=== PATIENT | male | born 1990 | race African-American/Black ===

== ENCOUNTER 2018-09-22 10:17 | Inpatient (IN) | payer OTHER ==
[2018-09-22] MEDS ORDERED: ALBUTEROL SO4 2.5/IPRATROPIUM 0.5 INH SOL 3 ML VIAL.NEB. NEB ONE ×2 (10:18→10:22)
[2018-09-22] MEDS ORDERED: MAGNESIUM SULF 50% (8.12 MEQ/2 ML-1 GM VIAL) IVPB ONE (10:34)
--- NOTE | 2018-09-22 10:40 | PDOC ---
History of Present Illness - General Chief Complaint: Shortness of Breath Stated Complaint: SOB, WHEEZING Time Seen by Provider: 09/22/18 10:18 History Source: Patient, EMS Exam Limitations: No Limitations - History of Present Illness Initial Comments: 09/22/18 10:40 HPI 28 YOM with h/o HTN, DM2, MARTHA (?CPAP - noncompliant), morbid obesity and hypoventilation d/o presenting with worsening wheezing, SOB since yesterday he was last admitted about 2 months ago at [facility] for SOB, which pt states was from wheezing from asthma vs PE. called EMS this morning, received Combivents x2 and dexamethasone 10mg IM TURNER IN. no intubations, +prior ICU/hospitalization stays - most recent at [facility] 2 months prior. he denies history of asthma and unclear why he has recurrent SOB/wheezing, which he said his doctor attributed to obesity and his medical problems. Denies fever, chills, chest pain, palpitation, cough or congestion, dizziness, weakness, N, V, D, abdominal pain, bladder and bowel problems, leg swelling, No sick contacts or travel. No new changes in medications. No precipitating factors , allergens or recent respiratory illnesses. Allergies: None Past Medical History: as documented in EMR/HPI Social history: No tobacco, ETOH or drug use. Surgical history: none Meds: as documented in EMR - amlodipine, glipizide, metformin, ventolin. PMD: Phil [place] Review of systems Constitutional: no fevers or chills. HEENT: no headache or dizziness. No congestion. No visual/hearing disturbances. no sore throat or ear pain. CVS: no cp or syncope. Resp: +wheezing and +sob. No cough. Gastrointestinal: no abdominal pain, nausea or vomiting. Genitourinary: no urinary sx, hematuria. MUSCULOSKELETAL: No joint pain and swelling. No neck or back pain. SKIN: no redness or skin changes, no discharge, no rash. No wounds. Hematologic: no easy bruising/bleeding. +history of PE? NEUROLOGIC: No headache, dizziness, LOC or altered mental status. No weakness, numbness or tingling. Psych: no anxiety or depression Allergic/Immunologic: no allergies All other systems reviewed and negative, or as documented in HPI. Physical exam: General: Moderate distress 2/2 tachypnea and respiratory distress. Morbidly obese and audibly wheezing. able to speak full sentences. HEENT: NCAT, PERRL, EOMI, clear conjunctiva, anicteric, moist mucus membranes, clear oropharynx, no oral lesions.. Neck: neck supple, FROM, no JVD Resp: Bilateral diffuse wheezing in all lung damon, +tachypneic. CVS: +tachycardia, no murmurs, 2+ peripheral pulses throughout, no peripheral edema Abdomen: soft, morbidly obese, nontender. Back: nontender, normal inspection and ROM MSK: no edema, PACKER x4, ROM intact. No clubbing or cyanosis. normal bulk and tone. Neuro: alert, oriented appropriately, clear speech Skin: warm and well perfused, cap refill <2 sec, normal color Extrem: no calf edema or tenderness. 09/22/18 11:05 09/22/18 12:10 09/22/18 12:49 09/22/18 13:24 09/22/18 14:14 09/22/18 15:56 Past History - Past Medical History Allergies/Adverse Reactions: Allergies Allergy/AdvReac Type Severity Reaction Status Date / Time No Known Allergies Allergy Verified 09/22/18 10:18 Home Medications: Ambulatory Orders Albuterol Sulfate Inhaler - [Ventolin Hfa Inhaler -] 2 inh PO Q6H PRN 09/22/18 Amlodipine Besylate [Norvasc -] 10 mg PO DAILY 09/22/18 Glipizide/Metformin HCl [Glipizide-Metformin 5-500 mg] 2 tab PO BID 09/22/18 Asthma: Yes COPD: No Diabetes: Yes HTN: Yes - Suicide/Smoking/Psychosocial Hx Smoking History: Unknown if ever smoked *Physical Exam - Vital Signs Last Vital Signs Temp Pulse Resp BP Pulse Ox 113 H 24 H 163/86 90 L 09/22/18 10:17 09/22/18 10:17 09/22/18 10:17 09/22/18 10:17 Heart Score/ECG Review #1 ECG reviewed & interpreted by me at: 10:25 General ECG Interpretation: Sinus Rhythm, Normal Intervals Compared to previous ECG there are: Previous ECG unavail 09/22/18 11:09 EKG sinus tachycardia at 107 bpm, no interval abnormalities, narrow QRS, ST and T wave segments and morphology normal. Nonspecific T wave abnormalities - no priors. - ECG Intrepretation Rhythm: Regular Rhythm - ECG Impressions Tachycardia: Sinus ED Treatment Course - LABORATORY CBC & Chemistry Diagram: 09/22/18 10:30 09/22/18 10:30 - RADIOLOGY Radiology Studies Ordered: Category Date Time Status CHEST X-RAY PORTABLE* [RAD] Stat Radiology 09/22/18 10:19 Ordered Medical Decision Making - Critical Care Time Total Critical Care Time (minutes): 45 (acute respiratory failure) Critical Care Statement: The care of this patient involved high complexity decision making to prevent further life threatening deterioration of the patient 's condition and/or to evaluate & treat vital organ system(s) failure or risk of failure. - Medical Decision Making 09/22/18 11:08 See HPI for details Vital signs reviewed, no fever, but +tachycardia 113, tachypneic and borderline hypoxia 90% on RA - placed on nebs and supp O2. DDx SOB: ACS, PE, PTX, CHF, COPD exac, pulmonary edema, pleurisy, pneumonia, viral syndrome. effusion. anemia, electrolyte/metabolic derangements. MARTHA, Pickwickian, hypoventilatory syndrome. Prior notes reviewed, including admissions, discharges and consultations - obtaining records from [facility]. laboratory results and imaging reviewed, basic labs and lytes remarkable for leukocytosis of 17K, likely from steroids TURNER IN - s/p Dexamethasone. VBG normal, with no PH derangement, mild CO2 retention, related likely to habitus and poor inspiratory efforts and Pickwickian CXR_poor effort, mild cardiomegaly, interstitial markings, no distinct infiltrate or effusion Cardiac panel_neg trop, BNP EKG sinus tachycardia at 107 bpm, no interval abnormalities, narrow QRS, ST and T wave segments and morphology normal. Nonspecific T wave abnormalities - no priors. ED course - CTA to eval for PE, high to mod risk, +tachycardia and dyspnea with unclear etiology. prior history? s/p heparin vs lovenox inj per pt history. poor historian - awaiting results and workup from [facility] - sent over relevant information 09/22/18 12:00 - bipap initiated for persistent dyspnea, wheezing and WOB. feels much comfortable, VS improving, spO2 >95% on bipap. IV zosyn for possible pna with wbc ct and symptoms and preceding respiratory issues. 09/22/18 13:[address] scan due to weight and habitus limits. defer for now upon checking prior records, will repeat D dimer, wells score for PE at 1.5, so still in low risk category. no prior PE on further checking of records. Dimer neg, so unlikely PE, no CTA at this time. Records from [facility]. Admission 08/02/18 to 08/08/18 Had similar sx and admitted for asthma exac, wheezing and SOB workup. Labs from admission also reviewed - leukocytosis noted at the time, hyperglycemia Received similar treatment there - steroids, bipap, albuterol nebs, Mg; held off on terbutaline and epi, due to h/o HTN chronic Co2 retention 52 Abx cef/azithro, then to zosyn, ultimately doxycycline course for +Mycoplasma PNA. ICU cs, pulm cs Dimer neg, duplex unremarkable at that time. x 09/22/18 14:15 endorsed to [facility] Elias tele bed observation 09/22/18 14:58 09/22/18 14:58 09/22/18 15:55 09/22/18 15:57 *DC/Admit/Observation/Transfer Diagnosis at time of Disposition: Wheezing, Acute and chronic respiratory failure, Asthma exacerbation, MARTHA ( obstructive sleep apnea) - Discharge Dispostion Condition at time of disposition: Guarded Decision to Admit order: Yes Decision to Admit order Date/Time: 09/22/18 13:49 Decision to Admit Order Category Date Time Status Decision to Admit to Hospital Routine Admission 09/22/18 13:48 Ordered - Referrals - Patient Instructions - Post Discharge Activity
[2018-09-22] MEDS ORDERED: MAGNESIUM 1GM/D5W - 2 GM/200 ML IVPB IVPB ONE (10:48)
[2018-09-22 11:16] LABS: BASO % 1.2 % (0-2.0); EOS % 5.5 % (0-4.5); HEMATOCRIT 40.3 % (35.4-49); MCH 27.1 pg (25.7-33.7); MCHC 32.3 g/dl (32.0-35.9); MEAN CELL VOLUME 83.9 fl (80-96); MEAN PLT VOLUME 8.2 fl (7.5-11.1); MONO % 4.1 % (3.8-10.2); NEUT % 74.2 % (42.8-82.8); PLATELET COUNT 448 K/MM3 (134-434); RDW 13.3 % (11.9-15.9); WHITE BLOOD COUNT 17.8 K/mm3 (4.0-10.8)
[2018-09-22 11:17] LABS: ALBUMIN 3.4 g/dl (3.4-5.0); BILIRUBIN,TOTAL 0.6 mg/dl (0.2-1); CALCIUM 8.5 mg/dl (8.5-10); CREATININE 0.5 mg/dl (0.55-1.3); POTASSIUM 3.8 mmol/L (3.5-5.1); TOT PROT 7.7 g/dl (6.4-8.2)
[2018-09-22 11:24] LABS: VENOUS PC02 51.8 mmHg (41-51); VENOUS PH 7.37 (7.31-7.41); VENOUS PO2 57.8 mmHg (30-40)
[2018-09-22] MEDS ORDERED: ALBUTEROL SO4 0.083% IH SOL 2.5 MG/3 ML VIAL.NEB. NEB ONE (11:57)
[2018-09-22] MEDS ORDERED: ALBUTEROL SO4 0.083% IH SOL 2.5 MG/3 ML VIAL.NEB. NEB PRN (11:57)
[2018-09-22 12:13] LABS: ACTIVATED PTT 35.4 SECONDS (25.2-36.5)
[2018-09-22 12:18] LABS: INR 1.29 (0.82-1.09); PROTHROMBIN TIME (PATIENT) 14.4 SEC (10.2-13.0)
[2018-09-22] MEDS ORDERED: ENOXAPARIN NA (PORCINE) 120 MG/0.8 ML DISP.SYRIN SQ SCH (13:30)
[2018-09-22] MEDS ORDERED: SODIUM CHLORIDE 0.9% 500 ML INFUS.BAG IV ONE (13:48)
[2018-09-22] MEDS ORDERED: PIPERACILLIN/TAZOB 4.5 GM 4.5 GM in DEXTROSE 5%-WATER 100 ML IVPB ONE (13:48)
[2018-09-22] MEDS ORDERED: ENOXAPARIN NA (PORCINE) 120 MG/0.8 ML DISP.SYRIN SQ ONE (14:09)
[2018-09-22] MEDS ORDERED: PIPERACILLIN/TAZOBACTAM 4.5 GM VIAL IVPB ONE (14:09)
--- NOTE | 2018-09-22 15:20 | HP ---
CHIEF COMPLAINT: Shortness of breath, wheezing PCP: Dr. Grewal HISTORY OF PRESENT ILLNESS: 28 year-old male with a PMH significant for developmental delay, HTN, asthma, Type II NIDDM, morbid obesity, hypoventilation syndrome and MARTHA (not using home CPAP). Recently hospitalized at [facility] 08/02-08/08/18 for asthma exacerbation/mycoplasma pneumonia. Presents to the ED with wheezing and SOB x 1 day. 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; lives in [facility] with mother Smoking: no Alcohol: no Drugs: no Family History: Allergies Strawberries - reaction unknown HOME MEDICATIONS: Home Medications Medication Instructions Recorded Albuterol Sulfate Inhaler - 2 inh PO Q6H PRN 09/22/18 [Ventolin Hfa Inhaler -] Amlodipine Besylate [Norvasc -] 10 mg PO DAILY 09/22/18 Glipizide/Metformin HCl 2 tab PO BID 09/22/18 [Glipizide-Metformin 5-500 mg] REVIEW OF SYSTEMS CONSTITUTIONAL: Absent: fever, chills, diaphoresis, generalized weakness, malaise, loss of appetite, weight change HEENT: Absent: rhinorrhea, nasal congestion, throat pain, throat swelling, difficulty swallowing, mouth swelling, ear pain, eye pain, visual changes CARDIOVASCULAR: Absent: chest pain, syncope, palpitations, irregular heart rate, lightheadedness , peripheral edema RESPIRATORY: +SOB, wheezing Absent: cough, shortness of breath, dyspnea with exertion, orthopnea, wheezing, stridor, hemoptysis GASTROINTESTINAL: Absent: abdominal pain, abdominal distension, nausea, vomiting, diarrhea, constipation, melena, hematochezia GENITOURINARY: Absent: dysuria, frequency, urgency, hesitancy, hematuria, flank pain, genital pain MUSCULOSKELETAL: Absent: myalgia, arthralgia, joint swelling, back pain, neck pain SKIN: Absent: rash, itching, pallor HEMATOLOGIC/IMMUNOLOGIC: Absent: easy bleeding, easy bruising, lymphadenopathy, frequent infections ENDOCRINE: Absent: unexplained weight gain, unexplained weight loss, heat intolerance, cold intolerance NEUROLOGIC: Absent: headache, focal weakness or paresthesias, dizziness, unsteady gait, seizure, mental status changes, bladder or bowel incontinence PSYCHIATRIC: Absent: anxiety, depression, suicidal or homicidal ideation, hallucinations. PHYSICAL EXAMINATION Vital Signs - 24 hr 09/22/18 09/22/18 09/22/18 10:17 12:40 12:57 Temperature 97.6 F 97.7 F Pulse Rate 113 H Pulse Rate [ 105 H Left Apical] Respiratory 24 H 16 Rate Blood Pressure 163/86 Blood Pressure 134/91 [Right Arm] O2 Sat by Pulse 90 L 100 98 Oximetry (%) GENERAL: Awake, alert, and fully oriented, in no acute distress. HEAD: Normal with no signs of trauma. EYES: Pupils equal, round and reactive to light, extraocular movements intact, sclera anicteric, conjunctiva clear. No lid lag. EARS, NOSE, THROAT: Ears normal, nares patent, oropharynx clear without exudates. Moist mucous membranes. NECK: Normal range of motion, supple without lymphadenopathy, JVD, or masses. LUNGS: HEART: Regular rate and rhythm, normal S1 and S2 without murmur, rub or gallop. ABDOMEN: Soft, nontender, not distended, normoactive bowel sounds, no guarding, no rebound, no masses. No hepatomegaly or splenomegaly. MUSCULOSKELETAL: Normal range of motion at all joints. No bony deformities or tenderness. No CVA tenderness. UPPER EXTREMITIES: 2+ pulses, warm, well-perfused. No cyanosis. No clubbing. No peripheral edema. LOWER EXTREMITIES: 2+ pulses, warm, well-perfused. No calf tenderness. No peripheral edema. NEUROLOGICAL: Cranial nerves II-XII intact. Normal speech. Normal gait. PSYCHIATRIC: Cooperative. Good eye contact. Appropriate mood and affect. SKIN: Warm, dry, normal turgor, no rashes or lesions noted, normal capillary refill. Laboratory Results - last 24 hr 09/22/18 09/22/18 09/22/18 10:30 10:30 10:30 WBC 17.8 H RBC 4.80 Hgb 13.0 Hct 40.3 MCV 83.9 MCH 27.1 MCHC 32.3 RDW 13.3 Plt Count 448 H MPV 8.2 Absolute Neuts (auto) 13.2 Neutrophils % 74.2 Lymphocytes % 15.0 Monocytes % 4.1 Eosinophils % 5.5 H Basophils % 1.2 PT with INR INR PTT (Actin FS) D-Dimer VBG pH 7.37 POC VBG pCO2 51.8 H POC VBG pO2 57.8 H VBG HCO3 29.5 H VBG O2 Sat (Carissa) 87.8 H VBG Base Excess 3.4 H Sodium 135 L Potassium 3.8 Chloride 96 L Carbon Dioxide 24 Anion Gap 15 BUN 11 Creatinine 0.5 L Est GFR (CKD-EPI)AfAm 173.34 Est GFR (CKD-EPI)NonAf 149.56 Random Glucose 229 H Calcium 8.5 Total Bilirubin 0.6 AST 38 H ALT 34 Alkaline Phosphatase 106 Troponin I B-Natriuretic Peptide Total Protein 7.7 Albumin 3.4 09/22/18 09/22/18 09/22/18 10:30 10:30 11:10 WBC RBC Hgb Hct MCV MCH MCHC RDW Plt Count MPV Absolute Neuts (auto) Neutrophils % Lymphocytes % Monocytes % Eosinophils % Basophils % PT with INR INR PTT (Actin FS) D-Dimer 424 VBG pH POC VBG pCO2 POC VBG pO2 VBG HCO3 VBG O2 Sat (Carissa) VBG Base Excess Sodium Potassium Chloride Carbon Dioxide Anion Gap BUN Creatinine Est GFR (CKD-EPI)AfAm Est GFR (CKD-EPI)NonAf Random Glucose Calcium Total Bilirubin AST ALT Alkaline Phosphatase Troponin I < 0.03 B-Natriuretic Peptide 27.2 Total Protein Albumin 09/22/18 11:48 WBC RBC Hgb Hct MCV MCH MCHC RDW Plt Count MPV Absolute Neuts (auto) Neutrophils % Lymphocytes % Monocytes % Eosinophils % Basophils % PT with INR 14.4 H INR 1.29 H PTT (Actin FS) 35.4 D-Dimer VBG pH POC VBG pCO2 POC VBG pO2 VBG HCO3 VBG O2 Sat (Carissa) VBG Base Excess Sodium Potassium Chloride Carbon Dioxide Anion Gap BUN Creatinine Est GFR (CKD-EPI)AfAm Est GFR (CKD-EPI)NonAf Random Glucose Calcium Total Bilirubin AST ALT Alkaline Phosphatase Troponin I B-Natriuretic Peptide Total Protein Albumin ASSESSMENT/PLAN 28 year-old male with a PMH significant for HTN, Type II NIDDM, morbid obesity, hypoventilation syndrome, MARTHA on home CPAP. Hospitalized in July 2018 for mycoplasma pneumonia. Placed on observation for hypoxic respiratory failure likely secondary to asthma exacerbation. Hypoxic respiratory failure likely secondary to asthma exacerbation Chronic hypercapneic respiratory failure Obesity hypoventilation syndrome MARTHA --sastting 90% on room air --d-dimer negative --CXR no acute findings, CT not possible due to weight limit --afebrile, elevated WBC but possibly due to dexamethasone administered by EMS; will start empiric ceftriaxone and azithro --BiPAP at night and PRN --ABG pending Hypertension --BP stable --continue amlodipine Type II NIDDM --review of [facility] records: A1C 14; was on Lantus 42U qhs and Humalog 18U with meals --Novolog sliding scale coverage for now while NPO FEN Fluids: PO intake adequate Electrolytes: replete as indicated Nutrition: low sodium, diabetic DVT prophylaxis: subq heparin Physical therapy Dispo: continues to require inpatient care. Full code. Visit type - Emergency Visit Emergency Visit: Yes ED Registration Date: 09/22/18 Care time: The patient presented to the Emergency Department on the above date and was hospitalized for further evaluation of their emergent condition. - New Patient This patient is new to me today: Yes Date on this admission: 09/22/18 - Critical Care Critical Care patient: No
[2018-09-22] MEDS: ALBUTEROL SO4 2.5/IPRATROPIUM 0.5 INH SOL 3 ML VIAL.NEB. NEB SCH ×2 (17:40→19:53)
[2018-09-22] MEDS: INSULIN (NOVOLOG) ASPART 100 UNITS/ML 10ML VIAL SQ SCH ×2 (17:40→22:46)
[2018-09-22] MEDS ORDERED: HEPARIN NA (PORCINE) 5,000 UNITS/ML 1ML VIAL SQ SCH (18:00)
[2018-09-22 18:26] LABS: ARTERIAL BLD GAS O2 SATURATION 91.6 % (95-98); ARTERIAL BLOOD GAS PCO2 44.7 mmHg (35-45); ARTERIAL BLOOD GAS PO2 62.3 mmHg (80-105); ARTERIAL BLOOD GAS pH 7.41 (7.35-7.45)
[2018-09-22 18:30] LABS: ALLENS TEST POSITIVE
[2018-09-22] MEDS ORDERED: CEFTRIAXONE 1 GM in DEXTROSE 5%-WATER - 50 ML IVPB SCH (18:30)
[2018-09-22] MEDS ORDERED: AZITHROMYCIN IVPB 500 MG/250 ML BAG IVPB SCH (18:30)
--- NOTE | 2018-09-22 18:40 | PN ---
Progress Note (short form) - Note Progress Note: PULMONARY CONSULTATION DICTATED 09/22/18 IMP ACUTE HYPOXEMIC RESPIRATORY FAILURE ASTHMA EXACERBATION OBESITY-HYPOVENTILATION SYNDROME MORBID OBESITY DM HTN H/O MYCOPLASMA PNEUMONIA PLAN IV STEROIDS INHALED BRONCHODILATORS O2 TO MAINTAIN SAT 90% OR GREATER BIPAP AT NIGHT AND PRN ABX MONITOR PEAK FLOW GLYCEMIC CONTROL DR GUERRERO Problem List - Problems (1) Acute on chronic respiratory failure with hypoxemia Code(s): J96.21 - ACUTE AND CHRONIC RESPIRATORY FAILURE WITH HYPOXIA (2) Acute hypoxemic respiratory failure Code(s): J96.01 - ACUTE RESPIRATORY FAILURE WITH HYPOXIA (3) Acute and chronic respiratory failure Code(s): J96.20 - ACUTE AND CHR RESP FAILURE, UNSP W HYPOXIA OR HYPERCAPNIA (4) Asthma exacerbation Code(s): J45.901 - UNSPECIFIED ASTHMA WITH (ACUTE) EXACERBATION (5) MARTHA (obstructive sleep apnea) Code(s): G47.33 - OBSTRUCTIVE SLEEP APNEA (ADULT) (PEDIATRIC) (6) Wheezing Code(s): R06.2 - WHEEZING
[2018-09-22] MEDS ORDERED: CEFTRIAXONE 1 G/50 ML PREMIX 50 ML IVPB SCH (18:45)
--- NOTE | 2018-09-22 19:12 | CONS ---
DATE OF CONSULTATION: 09/22/2018 PULMONARY CONSULTATION REFERRING PHYSICIAN: Paulina Salgado N.P. HISTORY OF PRESENT ILLNESS: The patient is a 28-year-old black male with a past medical history of obesity hypoventilation syndrome, obstructive sleep apnea, asthma, diabetes, morbid obesity, hypertension, admitted to [facility] with 1-day history of increasing shortness of breath, cough, and bronchospasm. Patient apparently was hospitalized approximately 2 months ago at [place] secondary to asthma exacerbation. At the time, he was treated and noted to have mycoplasma positive antibodies, placed on antibiotic therapy, IV steroids, inhaled bronchodilators, and BiPAP. Patient responded well and discharged home in stable condition, and was apparently doing well until yesterday when he started developing increasing shortness of breath, cough and wheezing. EMS was called earlier today and was prescribed 2 Combivents and Decadron 10 mg IM. The patient was started on O2 as well as BiPAP with some clinical improvement. There is no previous history of intubation, but he apparently has had ICU hospitalizations in the past, likely placed on noninvasive positive pressure ventilation. PAST MEDICAL HISTORY: Again includes obstructive sleep apnea, asthma, hypertension, type 2 diabetes, obesity hypoventilation syndrome. REVIEW OF SYSTEMS: At the current time, positive cough, positive wheezing, positive shortness of breath. No chest pain, no palpitations. CURRENT MEDICATIONS: Include Solu-Medrol 40 q.6, Zithromax, heparin, albuterol, DuoNeb, ceftriaxone, Norvasc, and NovoLog. PHYSICAL EXAMINATION: GENERAL: The patient is a morbidly obese male, well-developed, well-nourished, awake, alert, sitting out of bed to chair, mildly dyspneic, but in no acute distress. VITAL SIGNS: O2 saturation is 90% on 4 L. Respiratory rate is 18. He is afebrile. Heart rate is 102. HEENT: Normocephalic, atraumatic. NECK: Supple. HEART: Regular S1, S2. CHEST: Diffuse bilateral wheezes. ABDOMEN: Soft, bowel sounds positive. EXTREMITIES: No cyanosis, edema. LABORATORY: WBC 17.8, hemoglobin 13, hematocrit 40.3, platelet count of 248, 000. D-dimer is normal at 424. Blood gas: initial venous blood gas 7.37, pCO2 of 51 and pO2 of 57, bicarbonate of 29, saturation of 87. Recent blood gas on unknown quantity of oxygen is 7.41, pCO2 of 44, pO2 of 62, bicarbonate of 27, saturation of 91.6. Chemistries: BUN 11, creatinine 0.5. Chest x-ray reveals AP film, large cardiac silhouette but no acute infiltrates or effusions. IMPRESSION: 1. Acute hypoxemic respiratory failure secondary to acute asthma exacerbation. 2. Obesity hypoventilation syndrome. 3. Morbid obesity. 4. Diabetes. 5. Hypertension. 6. History of mycoplasma pneumonia. PLAN: IV steroids, inhaled bronchodilators, supplemental O2 to maintain saturation of 90% or greater, BiPAP at night as well as p.r.n. for increasing respiratory distress, antibiotics, monitor peak flow, glycemic control. WILLIAM GUERRERO M.D. [id number] MTDD
[2018-09-22] MEDS: methylPREDNISolone NA SUCC 40 MG/1 ML VIAL IVPUSH SCH ×2 (19:53→22:00)
[2018-09-22] MEDS ORDERED: methylPREDNISolone NA SUCC 40 MG/1 ML VIAL IVPUSH SCH ×2 (20:00→21:00)
--- NOTE | 2018-09-22 22:11 | HOSP ---
Subjective - Review of Symptoms Events since last encounter: [facility] related to asthma exacerbation. On arrival O2 sat 100% on 4L and he remains hemodynamically stable. Physical Examination Vital Signs: Vital Signs Temperature 98.2 F 09/22/18 20:25 Pulse Rate 106 H 09/22/18 20:25 Respiratory Rate 26 H 09/22/18 20:25 Blood Pressure 153/76 09/22/18 20:25 O2 Sat by Pulse Oximetry (%) 93 L 09/22/18 20:31 Labs: CBC, BMP 09/22/18 10:30 09/22/18 10:30
[2018-09-23] MEDS ORDERED: ALBUTEROL SO4 0.083% IH SOL 2.5 MG/3 ML VIAL.NEB. NEB PRN (01:13)
[2018-09-23] MEDS: methylPREDNISolone NA SUCC 40 MG/1 ML VIAL IVPUSH SCH ×3 (03:00→17:34)
[2018-09-23] MEDS ORDERED: HEPARIN NA (PORCINE) 5,000 UNITS/ML 1ML VIAL SQ SCH (06:00)
[2018-09-23] MEDS: HEPARIN NA (PORCINE) 5,000 UNITS/ML 1ML VIAL SQ SCH ×3 (06:10→21:57)
[2018-09-23] MEDS: INSULIN SLIDING SCALE (NOVOLOG) 1 VIAL SQ SCH ×4 (06:12→21:58)
[2018-09-23 07:11] LABS: BASO % 0.3 % (0-2.0); HEMATOCRIT 40.3 % (35.4-49); HEMOGLOBIN 12.9 GM/dL (11.7-16.9); LYMPH % 8.3 % (8-40); MCH 26.6 pg (25.7-33.7); MEAN CELL VOLUME 83.2 fl (80-96); MEAN PLT VOLUME 7.8 fl (7.5-11.1); MONO % 1.6 % (3.8-10.2); NEUT % 89.8 % (42.8-82.8); PLATELET COUNT 469 K/MM3 (134-434); RBC 4.85 M/mm3 (4.00-5.60); RDW 13.9 % (11.9-15.9); WHITE BLOOD COUNT 17.5 K/mm3 (4.0-10.0)
[2018-09-23 07:41] LABS: ALBUMIN 3.3 g/dl (3.4-5.0); BILIRUBIN,TOTAL 0.8 mg/dL (0.2-1); CALCIUM 8.3 mg/dL (8.5-10.1); CREATININE 0.7 mg/dL (0.55-1.3); MAGNESIUM 2.1 mg/dL (1.8-2.4); POTASSIUM 4.1 mmol/L (3.5-5.1); TOT PROT 8.1 g/dl (6.4-8.2)
[2018-09-23] MEDS: ALBUTEROL SO4 2.5/IPRATROPIUM 0.5 INH SOL 3 ML VIAL.NEB. NEB SCH ×4 (07:45→19:32)
[2018-09-23] MEDS ORDERED: cefTRIAXone SODIUM 1 GM VIAL ONE (09:06)
[2018-09-23] MEDS ORDERED: DEXTROSE 5%-WATER - 50 ML IVPB ONE (09:07)
[2018-09-23] MEDS: amLODIPine BESYLATE 10 MG TABLET (FP) PO SCH (09:35)
[2018-09-23] MEDS: CEFTRIAXONE 1 GM in DEXTROSE 5%-WATER - 50 ML IVPB SCH (09:40)
--- NOTE | 2018-09-23 09:40 | PN ---
Physical Exam: SUBJECTIVE: Patient seen and examined in his room. sitting in chair. on 4 liters of nasal cannula. OBJECTIVE: add protonix Vital Signs Period Temp Pulse Resp BP Sys/Basilio Pulse Ox Last 24 Hr 97.6 F-98.7 F 95-113 16-26 132-163/65-98 90-100 GENERAL: The patient is awake, alert, in no acute distress. HEAD: Normal with no signs of trauma. EYES: PERRL, extraocular movements intact, sclera anicteric, conjunctiva clear. No ptosis. ENT: Ears normal, nares patent, oropharynx clear without exudates, moist mucous membranes. NECK: Trachea midline, full range of motion, supple. LUNGS: anterior and posterior expiratory wheezing. on 4 liters supplemental oxygen HEART: Regular rate and rhythm ABDOMEN: Soft, nontender, nondistended, normoactive bowel sounds, no guarding EXTREMITIES: no edema. NEUROLOGICAL: Normal speech, gait not observed. PSYCH: Normal mood, normal affect. SKIN: Warm, dry, normal turgor, no rashes or lesions noted Laboratory Results - last 24 hr 09/22/18 09/22/18 09/22/18 10:30 10:30 10:30 WBC 17.8 H RBC 4.80 Hgb 13.0 Hct 40.3 MCV 83.9 MCH 27.1 MCHC 32.3 RDW 13.3 Plt Count 448 H MPV 8.2 Absolute Neuts (auto) 13.2 Neutrophils % 74.2 Lymphocytes % 15.0 Monocytes % 4.1 Eosinophils % 5.5 H Basophils % 1.2 Nucleated RBC % PT with INR INR PTT (Actin FS) D-Dimer Puncture Site ABG pH ABG pCO2 at Pt Temp ABG pO2 at Pt Temp ABG HCO3 ABG O2 Sat (Measured) ABG O2 Content ABG Base Excess Alon Test VBG pH 7.37 POC VBG pCO2 51.8 H POC VBG pO2 57.8 H VBG HCO3 29.5 H VBG O2 Sat (Carissa) 87.8 H VBG Base Excess 3.4 H Oxygen Flow Rate Sodium 135 L Potassium 3.8 Chloride 96 L Carbon Dioxide 24 Anion Gap 15 BUN 11 Creatinine 0.5 L Est GFR (CKD-EPI)AfAm 173.34 Est GFR (CKD-EPI)NonAf 149.56 POC Glucometer Random Glucose 229 H Hemoglobin A1c % Calcium 8.5 Magnesium Total Bilirubin 0.6 AST 38 H ALT 34 Alkaline Phosphatase 106 Troponin I B-Natriuretic Peptide Total Protein 7.7 Albumin 3.4 Urine Color Urine Appearance Urine pH Urine Protein Urine Glucose (UA) Urine Ketones Urine Blood Urine Nitrite Urine Bilirubin Urine Urobilinogen Ur Leukocyte Esterase Urine RBC Urine WBC Urine Bacteria Influenza A (Rapid) Influenza B (Rapid) 09/22/18 09/22/18 09/22/18 10:30 10:30 11:10 WBC RBC Hgb Hct MCV MCH MCHC RDW Plt Count MPV Absolute Neuts (auto) Neutrophils % Lymphocytes % Monocytes % Eosinophils % Basophils % Nucleated RBC % PT with INR INR PTT (Actin FS) D-Dimer 424 Puncture Site ABG pH ABG pCO2 at Pt Temp ABG pO2 at Pt Temp ABG HCO3 ABG O2 Sat (Measured) ABG O2 Content ABG Base Excess Alon Test VBG pH POC VBG pCO2 POC VBG pO2 VBG HCO3 VBG O2 Sat (Carissa) VBG Base Excess Oxygen Flow Rate Sodium Potassium Chloride Carbon Dioxide Anion Gap BUN Creatinine Est GFR (CKD-EPI)AfAm Est GFR (CKD-EPI)NonAf POC Glucometer Random Glucose Hemoglobin A1c % Calcium Magnesium Total Bilirubin AST ALT Alkaline Phosphatase Troponin I < 0.03 B-Natriuretic Peptide 27.2 Total Protein Albumin Urine Color Urine Appearance Urine pH Urine Protein Urine Glucose (UA) Urine Ketones Urine Blood Urine Nitrite Urine Bilirubin Urine Urobilinogen Ur Leukocyte Esterase Urine RBC Urine WBC Urine Bacteria Influenza A (Rapid) Influenza B (Rapid) 09/22/18 09/22/18 09/22/18 11:48 17:25 17:32 WBC RBC Hgb Hct MCV MCH MCHC RDW Plt Count MPV Absolute Neuts (auto) Neutrophils % Lymphocytes % Monocytes % Eosinophils % Basophils % Nucleated RBC % PT with INR 14.4 H INR 1.29 H PTT (Actin FS) 35.4 D-Dimer Puncture Site No Result Required. ABG pH 7.41 ABG pCO2 at Pt Temp 44.7 ABG pO2 at Pt Temp 62.3 L ABG HCO3 27.7 H ABG O2 Sat (Measured) 91.6 L ABG O2 Content 21.1 ABG Base Excess 3.0 H Alon Test Positive VBG pH POC VBG pCO2 POC VBG pO2 VBG HCO3 VBG O2 Sat (Carissa) VBG Base Excess Oxygen Flow Rate No Result Required. Sodium Potassium Chloride Carbon Dioxide Anion Gap BUN Creatinine Est GFR (CKD-EPI)AfAm Est GFR (CKD-EPI)NonAf POC Glucometer 235 Random Glucose Hemoglobin A1c % Calcium Magnesium Total Bilirubin AST ALT Alkaline Phosphatase Troponin I B-Natriuretic Peptide Total Protein Albumin Urine Color Urine Appearance Urine pH Urine Protein Urine Glucose (UA) Urine Ketones Urine Blood Urine Nitrite Urine Bilirubin Urine Urobilinogen Ur Leukocyte Esterase Urine RBC Urine WBC Urine Bacteria Influenza A (Rapid) Influenza B (Rapid) 09/22/18 09/22/18 09/22/18 18:10 20:00 22:41 WBC RBC Hgb Hct MCV MCH MCHC RDW Plt Count MPV Absolute Neuts (auto) Neutrophils % Lymphocytes % Monocytes % Eosinophils % Basophils % Nucleated RBC % PT with INR INR PTT (Actin FS) D-Dimer Puncture Site ABG pH ABG pCO2 at Pt Temp ABG pO2 at Pt Temp ABG HCO3 ABG O2 Sat (Measured) ABG O2 Content ABG Base Excess Alon Test VBG pH POC VBG pCO2 POC VBG pO2 VBG HCO3 VBG O2 Sat (Carissa) VBG Base Excess Oxygen Flow Rate Sodium Potassium Chloride Carbon Dioxide Anion Gap BUN Creatinine Est GFR (CKD-EPI)AfAm Est GFR (CKD-EPI)NonAf POC Glucometer 211 Random Glucose Hemoglobin A1c % Calcium Magnesium Total Bilirubin AST ALT Alkaline Phosphatase Troponin I B-Natriuretic Peptide Total Protein Albumin Urine Color Yellow Urine Appearance Slightly Urine pH 5.5 Urine Protein 2+ H Urine Glucose (UA) Negative Urine Ketones Negative Urine Blood Trace-lysed Urine Nitrite Negative Urine Bilirubin Negative Urine Urobilinogen 0.2 Ur Leukocyte Esterase 1+ Urine RBC 2-5 Urine WBC 2-5 Urine Bacteria Few Influenza A (Rapid) Negative Influenza B (Rapid) Negative 09/23/18 09/23/18 09/23/18 06:00 06:00 06:00 WBC 17.5 H RBC 4.85 Hgb 12.9 Hct 40.3 MCV 83.2 MCH 26.6 MCHC 32.0 RDW 13.9 Plt Count 469 H MPV 7.8 Absolute Neuts (auto) 15.7 H Neutrophils % 89.8 H Lymphocytes % 8.3 Monocytes % 1.6 L Eosinophils % 0.0 Basophils % 0.3 Nucleated RBC % 0 PT with INR INR PTT (Actin FS) D-Dimer Puncture Site ABG pH ABG pCO2 at Pt Temp ABG pO2 at Pt Temp ABG HCO3 ABG O2 Sat (Measured) ABG O2 Content ABG Base Excess Alon Test VBG pH POC VBG pCO2 POC VBG pO2 VBG HCO3 VBG O2 Sat (Carissa) VBG Base Excess Oxygen Flow Rate Sodium 137 Potassium 4.1 Chloride 101 Carbon Dioxide 28 Anion Gap 8 BUN 15 Creatinine 0.7 Est GFR (CKD-EPI)AfAm 150.95 Est GFR (CKD-EPI)NonAf 130.24 POC Glucometer Random Glucose 233 H Hemoglobin A1c % 10.3 H Calcium 8.3 L Magnesium 2.1 Total Bilirubin 0.8 AST 31 ALT 40 Alkaline Phosphatase 120 H Troponin I B-Natriuretic Peptide Total Protein 8.1 Albumin 3.3 L Urine Color Urine Appearance Urine pH Urine Protein Urine Glucose (UA) Urine Ketones Urine Blood Urine Nitrite Urine Bilirubin Urine Urobilinogen Ur Leukocyte Esterase Urine RBC Urine WBC Urine Bacteria Influenza A (Rapid) Influenza B (Rapid) 09/23/18 06:06 WBC RBC Hgb Hct MCV MCH MCHC RDW Plt Count MPV Absolute Neuts (auto) Neutrophils % Lymphocytes % Monocytes % Eosinophils % Basophils % Nucleated RBC % PT with INR INR PTT (Actin FS) D-Dimer Puncture Site ABG pH ABG pCO2 at Pt Temp ABG pO2 at Pt Temp ABG HCO3 ABG O2 Sat (Measured) ABG O2 Content ABG Base Excess Alon Test VBG pH POC VBG pCO2 POC VBG pO2 VBG HCO3 VBG O2 Sat (Carissa) VBG Base Excess Oxygen Flow Rate Sodium Potassium Chloride Carbon Dioxide Anion Gap BUN Creatinine Est GFR (CKD-EPI)AfAm Est GFR (CKD-EPI)NonAf POC Glucometer 203 Random Glucose Hemoglobin A1c % Calcium Magnesium Total Bilirubin AST ALT Alkaline Phosphatase Troponin I B-Natriuretic Peptide Total Protein Albumin Urine Color Urine Appearance Urine pH Urine Protein Urine Glucose (UA) Urine Ketones Urine Blood Urine Nitrite Urine Bilirubin Urine Urobilinogen Ur Leukocyte Esterase Urine RBC Urine WBC Urine Bacteria Influenza A (Rapid) Influenza B (Rapid) Active Medications Generic Name Dose Route Start Last Admin Trade Name Freq PRN Reason Stop Dose Admin Albuterol Sulfate 1 amp 09/23/18 01:13 Ventolin 0.083% Nebulizer Soln - NEB Q4H PRN SHORT OF BREATH/WHEEZING Albuterol/Ipratropium 1 amp 09/23/18 08:00 09/23/18 07:45 Duoneb - NEB 1 amp RQID JOSSY Administration Amlodipine Besylate 10 mg 09/23/18 10:00 Norvasc - PO DAILY JOSSY Heparin Sodium (Porcine) 5,000 unit 09/23/18 06:00 09/23/18 06:10 Heparin - SQ 5,000 unit TID JOSSY Administration Azithromycin 500 mg in 250 mls @ 250 mls/hr 09/23/18 10:00 Zithromax 500mg Ivpb (Pre-Docked) IVPB DAILY JOSSY Ceftriaxone Sodium 1 gm/ 50 mls @ 100 mls/hr 09/23/18 10:00 Dextrose IVPB DAILY JOSSY Protocol Insulin Aspart 1 vial 09/23/18 07:00 09/23/18 06:12 Novolog Vial Sliding Scale - SQ 4 unit ACHS JOSSY Administration Protocol Methylprednisolone Sodium Succinate 60 mg 09/22/18 20:00 09/23/18 03:00 Solu-Medrol - IVPUSH 60 mg Q6H-IV JOSSY Administration ASSESSMENT/PLAN: Patient is a 28 year old male with a past medical history of HTN, Type II NIDDM , morbid obesity, hypoventilation syndrome, MARTHA on home CPAP. Hospitalized in July 2018 for mycoplasma pneumonia. Admitted for hypoxic respiratory failure likely secondary to asthma exacerbation. Pulm: Hypoxic respiratory failure likely secondary to acute asthma exacerbation negative d dimer. still requires high dose supplement oxygen (4 liter nc) to retain normal oxygen saturations. titrate off oxygen as tolerated. has bipap at night. on solumedrol 60mg iv q6. on azithromycin and ceftriaxone.pulm following Chest xray 09/22/18 shows cardiomegaly. Card: Hypertension. controlled on norvasc 10mg daily. Endocrine: Type II NIDDM Elevated a1c. on SS. will add basal insulin for better control. goal is to have pre-meal insulin <180. diabetic diet. Heme: Leukocytosis. afebrile. blood and urine cultures pending. fen tolerating po monitor electrolytes diabetic diet prophy heparin protonix full code Visit type - Emergency Visit Emergency Visit: Yes ED Registration Date: 09/23/18 Care time: The patient presented to the Emergency Department on the above date and was hospitalized for further evaluation of their emergent condition. - New Patient This patient is new to me today: Yes Date on this admission: 09/23/18 - Critical Care Critical Care patient: No - Discharge Referral Referred to [facility] Med P.C.: No
[2018-09-23] MEDS ORDERED: amLODIPine BESYLATE 10 MG TABLET (FP) PO SCH (10:00)
[2018-09-23] MEDS: AZITHROMYCIN IVPB 500 MG/250 ML BAG IVPB SCH (10:23)
[2018-09-23] MEDS: PANTOPRAZOLE 40 MG TABLET (FP) PO SCH (10:23)
--- NOTE | 2018-09-23 11:42 | PN ---
Progress Note, Physician History of Present Illness: pulmonary alert,feeling better,less dyspneic,oob-chair - Current Medication List Current Medications: Active Medications Albuterol Sulfate (Ventolin 0.083% Nebulizer Soln -) 1 amp NEB Q4H PRN PRN Reason: SHORT OF BREATH/WHEEZING Albuterol/Ipratropium (Duoneb -) 1 amp NEB RQID [facility] Last Admin: 09/23/18 11:34 Dose: 1 amp Amlodipine Besylate (Norvasc -) 10 mg PO DAILY [facility] Last Admin: 09/23/18 09:35 Dose: 10 mg Heparin Sodium (Porcine) (Heparin -) 5,000 unit SQ TID [facility] Last Admin: 09/23/18 06:10 Dose: 5,000 unit Azithromycin (Zithromax 500mg Ivpb (Pre-Docked)) 500 mg in 250 mls @ 250 mls/ hr IVPB DAILY [facility] Last Admin: 09/23/18 10:23 Dose: 250 mls/hr Ceftriaxone Sodium 1 gm/ (Dextrose) 50 mls @ 100 mls/hr IVPB DAILY [facility]; Protocol Last Admin: 09/23/18 09:40 Dose: 100 mls/hr Insulin Aspart (Novolog Vial Sliding Scale -) 1 vial SQ ACHS [facility]; Protocol Last Admin: 09/23/18 06:12 Dose: 4 unit Insulin Detemir (Levemir Vial) 15 units SQ HS [facility] Methylprednisolone Sodium Succinate (Solu-Medrol -) 60 mg IVPUSH Q6H-IV [facility] Last Admin: 09/23/18 09:35 Dose: 60 mg Pantoprazole Sodium (Protonix -) 40 mg PO DAILY [facility] Last Admin: 09/23/18 10:23 Dose: 40 mg - Objective Vital Signs: Vital Signs Temperature 98.1 F 09/23/18 08:53 Pulse Rate 102 H 09/23/18 08:53 Respiratory Rate 18 09/23/18 08:53 Blood Pressure 156/87 09/23/18 08:53 O2 Sat by Pulse Oximetry (%) 93 L 09/23/18 08:34 Constitutional: Yes: No Distress, Calm, Obese Eyes: Yes: WNL HENT: Yes: WNL Neck: Yes: WNL Cardiovascular: Yes: Regular Rate and Rhythm, S1, S2 Respiratory: Yes: Wheezes (less wheezes korina) Gastrointestinal: Yes: Normal Bowel Sounds, Soft Extremities: Yes: WNL Edema: Yes Labs: CBC, BMP 09/23/18 06:00 09/23/18 06:00 INR, PTT INR 1.29 (0.82-1.09) H 09/22/18 11:48 Problem List - Problems (1) Acute on chronic respiratory failure with hypoxemia Code(s): J96.21 - ACUTE AND CHRONIC RESPIRATORY FAILURE WITH HYPOXIA (2) Acute hypoxemic respiratory failure Code(s): J96.01 - ACUTE RESPIRATORY FAILURE WITH HYPOXIA (3) Acute and chronic respiratory failure Code(s): J96.20 - ACUTE AND CHR RESP FAILURE, UNSP W HYPOXIA OR HYPERCAPNIA (4) Asthma exacerbation Code(s): J45.901 - UNSPECIFIED ASTHMA WITH (ACUTE) EXACERBATION (5) MARHTA (obstructive sleep apnea) Code(s): G47.33 - OBSTRUCTIVE SLEEP APNEA (ADULT) (PEDIATRIC) (6) Wheezing Code(s): R06.2 - WHEEZING Assessment/Plan IMP ACUTE HYPOXEMIC RESPIRATORY FAILURE ASTHMA EXACERBATION OBESITY-HYPOVENTILATION SYNDROME MORBID OBESITY DM HTN H/O MYCOPLASMA PNEUMONIA PLAN IV STEROIDS INHALED BRONCHODILATORS O2 TO MAINTAIN SAT 90% OR GREATER BIPAP AT NIGHT AND PRN ABX MONITOR PEAK FLOW GLYCEMIC CONTROL DR GUERRERO Problem List - Problems (1) Acute on chronic respiratory failure with hypoxemia Code(s): J96.21 - ACUTE AND CHRONIC RESPIRATORY FAILURE WITH HYPOXIA (2) Acute hypoxemic respiratory failure Code(s): J96.01 - ACUTE RESPIRATORY FAILURE WITH HYPOXIA (3) Acute and chronic respiratory failure Code(s): J96.20 - ACUTE AND CHR RESP FAILURE, UNSP W HYPOXIA OR HYPERCAPNIA (4) Asthma exacerbation Code(s): J45.901 - UNSPECIFIED ASTHMA WITH (ACUTE) EXACERBATION (5) MARTHA (obstructive sleep apnea) Code(s): G47.33 - OBSTRUCTIVE SLEEP APNEA (ADULT) (PEDIATRIC) (6) Wheezing Code(s): R06.2 - WHEEZING
--- NOTE | 2018-09-23 12:13 | EKG ---
Test Reason : Blood Pressure : / mmHG Vent. Rate : 107 BPM Atrial Rate : 107 BPM P-R Int : 148 ms QRS Dur : 076 ms QT Int : 350 ms P-R-T Axes : 064 080 059 degrees QTc Int : 467 ms SINUS TACHYCARDIA SEPTAL INFARCT , AGE UNDETERMINED ABNORMAL ECG NO PREVIOUS ECGS AVAILABLE Confirmed by MD Spencer, Dank ([id number]) on 09/23/2018 12:13:21 PM Referred By: ALDA GARVIN Confirmed By:Dank Palmer MD
[2018-09-23] MEDS: INSULIN (LEVEMIR) 100 UNITS/ML UNITS SQ SCH (21:57)
[2018-09-24] MEDS: methylPREDNISolone NA SUCC 40 MG/1 ML VIAL IVPUSH SCH ×3 (02:34→17:20)
[2018-09-24] MEDS: ALBUTEROL SO4 2.5/IPRATROPIUM 0.5 INH SOL 3 ML VIAL.NEB. NEB SCH ×4 (08:07→20:20)
[2018-09-24] MEDS ORDERED: DEXTROSE 5%-WATER - 50 ML IVPB ONE (09:04)
[2018-09-24] MEDS ORDERED: cefTRIAXone SODIUM 1 GM VIAL ONE (09:04)
[2018-09-24] MEDS: CEFTRIAXONE 1 GM in DEXTROSE 5%-WATER - 50 ML IVPB SCH (09:09)
[2018-09-24] MEDS: amLODIPine BESYLATE 10 MG TABLET (FP) PO SCH (09:09)
[2018-09-24] MEDS: PANTOPRAZOLE 40 MG TABLET (FP) PO SCH (09:09)
[2018-09-24] MEDS: INSULIN SLIDING SCALE (NOVOLOG) 1 VIAL SQ SCH ×4 (09:11→22:35)
[2018-09-24] MEDS: HEPARIN NA (PORCINE) 5,000 UNITS/ML 1ML VIAL SQ SCH ×3 (09:11→22:36)
--- NOTE | 2018-09-24 09:16 | PN ---
Physical Exam: SUBJECTIVE: Patient seen and examined at the bedside. he reports feeling better. denies chest pain. OBJECTIVE: on discharge will need to be tested for home oxygen use. elevated hmga1c, will need follow up. Vital Signs Period Temp Pulse Resp BP Sys/Basilio Pulse Ox Last 24 Hr 97.6 F-98.8 F 78-91 18-22 135-157/59-86 93-96 GENERAL: The patient is awake, alert, in no acute distress. HEAD: Normal with no signs of trauma. EYES: PERRL, extraocular movements intact, sclera anicteric, conjunctiva clear. No ptosis. ENT: Ears normal, nares patent, oropharynx clear without exudates, moist mucous membranes. NECK: Trachea midline, full range of motion, supple. LUNGS: anterior and posterior expiratory wheezing. on 4 liters supplemental oxygen HEART: Regular rate and rhythm ABDOMEN: Soft, nontender, nondistended, normoactive bowel sounds, no guarding EXTREMITIES: no edema. NEUROLOGICAL: Normal speech, gait not observed. PSYCH: Normal mood, normal affect. SKIN: Warm, dry, normal turgor, no rashes or lesions noted Laboratory Results - last 24 hr 09/23/18 09/23/18 09/23/18 11:49 16:38 21:55 POC Glucometer 281 279 315 09/24/18 07:36 POC Glucometer 267 Active Medications Generic Name Dose Route Start Last Admin Trade Name Freq PRN Reason Stop Dose Admin Albuterol Sulfate 1 amp 09/23/18 01:13 Ventolin 0.083% Nebulizer Soln - NEB Q4H PRN SHORT OF BREATH/WHEEZING Albuterol/Ipratropium 1 amp 09/23/18 08:00 09/24/18 08:07 Duoneb - NEB 1 amp RQID JOSSY Administration Amlodipine Besylate 10 mg 09/23/18 10:00 09/23/18 09:35 Norvasc - PO 10 mg DAILY JOSSY Administration Heparin Sodium (Porcine) 5,000 unit 09/23/18 06:00 09/23/18 21:57 Heparin - SQ 5,000 unit TID JOSSY Administration Azithromycin 500 mg in 250 mls @ 250 mls/hr 09/23/18 10:00 09/23/18 10:23 Zithromax 500mg Ivpb (Pre-Docked) IVPB 250 mls/hr DAILY JOSSY Administration Ceftriaxone Sodium 1 gm/ 50 mls @ 100 mls/hr 09/23/18 10:00 09/23/18 09:40 Dextrose IVPB 100 mls/hr DAILY JOSSY Administration Protocol Insulin Aspart 1 vial 09/23/18 07:00 09/23/18 21:58 Novolog Vial Sliding Scale - SQ 8 unit ACHS JOSSY Administration Protocol Insulin Detemir 15 units 09/23/18 22:00 09/23/18 21:57 Levemir Vial SQ 15 unit HS JOSSY Administration Methylprednisolone Sodium Succinate 60 mg 09/23/18 18:00 09/24/18 02:34 Solu-Medrol - IVPUSH 60 mg Q8H-IV JOSSY Administration Pantoprazole Sodium 40 mg 09/23/18 10:00 09/23/18 10:23 Protonix - PO 40 mg DAILY JOSSY Administration ASSESSMENT/PLAN: Patient is a 28 year old male with a past medical history of HTN, Type II NIDDM , morbid obesity, hypoventilation syndrome, MARTHA on home CPAP. Hospitalized in July 2018 for mycoplasma pneumonia. Admitted for hypoxic respiratory failure likely secondary to asthma exacerbation. pulm: Hypoxic respiratory failure likely secondary to acute asthma exacerbation. negative d dimer. still requires high dose supplement oxygen (4 liter nc) to retain normal oxygen saturations. titrate off oxygen as tolerated. has bipap at night. on solumedrol 60mg iv q8. on azithromycin and ceftriaxone. pulm following Chest xray 09/22/18 shows cardiomegaly. card: Hypertension. controlled on norvasc 10mg daily. endo: Type II NIDDM/diabetes. Elevated a1c. on SS. will add basal insulin for better control. goal is to have pre-meal insulin <180. diabetic diet. will need to have insulin ordered on discharge. heme: Leukocytosis. afebrile. blood and urine cultures pending. fen tolerating po monitor electrolytes diabetic diet prophy heparin protonix full code Visit type - Emergency Visit Emergency Visit: Yes ED Registration Date: 09/23/18 Care time: The patient presented to the Emergency Department on the above date and was hospitalized for further evaluation of their emergent condition. - New Patient This patient is new to me today: No - Critical Care Critical Care patient: No - Discharge Referral Referred to [facility] Med P.C.: No
[2018-09-24] MEDS: AZITHROMYCIN IVPB 500 MG/250 ML BAG IVPB SCH (10:41)
--- NOTE | 2018-09-24 13:38 | PN ---
Progress Note, Physician History of Present Illness: PULMONARY ALERT FEELING BETTER,LESS DYSPNEIC. - Current Medication List Current Medications: Active Medications Albuterol Sulfate (Ventolin 0.083% Nebulizer Soln -) 1 amp NEB Q4H PRN PRN Reason: SHORT OF BREATH/WHEEZING Albuterol/Ipratropium (Duoneb -) 1 amp NEB RQID [facility] Last Admin: 09/24/18 11:36 Dose: 1 amp Amlodipine Besylate (Norvasc -) 10 mg PO DAILY [facility] Last Admin: 09/24/18 09:09 Dose: 10 mg Heparin Sodium (Porcine) (Heparin -) 5,000 unit SQ TID [facility] Last Admin: 09/24/18 09:11 Dose: 5,000 unit Azithromycin (Zithromax 500mg Ivpb (Pre-Docked)) 500 mg in 250 mls @ 250 mls/ hr IVPB DAILY [facility] Last Admin: 09/24/18 10:41 Dose: 250 mls/hr Ceftriaxone Sodium 1 gm/ (Dextrose) 50 mls @ 100 mls/hr IVPB DAILY [facility]; Protocol Last Admin: 09/24/18 09:09 Dose: 100 mls/hr Insulin Aspart (Novolog Vial Sliding Scale -) 1 vial SQ ACHS [facility]; Protocol Last Admin: 09/24/18 12:05 Dose: 8 unit Insulin Detemir (Levemir Vial) 15 units SQ HS [facility] Last Admin: 09/23/18 21:57 Dose: 15 unit Methylprednisolone Sodium Succinate (Solu-Medrol -) 60 mg IVPUSH Q8H-IV [facility]OSSY Last Admin: 09/24/18 09:09 Dose: 60 mg Pantoprazole Sodium (Protonix -) 40 mg PO DAILY [facility] Last Admin: 09/24/18 09:09 Dose: 40 mg - Objective Vital Signs: Vital Signs Temperature 98.5 F 09/24/18 10:00 Pulse Rate 85 09/24/18 10:00 Respiratory Rate 18 09/24/18 10:00 Blood Pressure 146/80 09/24/18 10:00 O2 Sat by Pulse Oximetry (%) 93 L 09/24/18 08:06 Constitutional: Yes: Calm, Obese HENT: Yes: WNL Neck: Yes: WNL Cardiovascular: Yes: Regular Rate and Rhythm, S1, S2 Respiratory: Yes: Wheezes (LESS WHEEZES BILATERALLY) Gastrointestinal: Yes: Normal Bowel Sounds, Soft Extremities: Yes: WNL Edema: Yes Labs: CBC, BMP Problem List - Problems (1) Acute on chronic respiratory failure with hypoxemia Code(s): J96.21 - ACUTE AND CHRONIC RESPIRATORY FAILURE WITH HYPOXIA (2) Acute hypoxemic respiratory failure Code(s): J96.01 - ACUTE RESPIRATORY FAILURE WITH HYPOXIA (3) Acute and chronic respiratory failure Code(s): J96.20 - ACUTE AND CHR RESP FAILURE, UNSP W HYPOXIA OR HYPERCAPNIA (4) Asthma exacerbation Code(s): J45.901 - UNSPECIFIED ASTHMA WITH (ACUTE) EXACERBATION (5) MARTHA (obstructive sleep apnea) Code(s): G47.33 - OBSTRUCTIVE SLEEP APNEA (ADULT) (PEDIATRIC) (6) Wheezing Code(s): R06.2 - WHEEZING Assessment/Plan IMP ACUTE HYPOXEMIC RESPIRATORY FAILURE IMPROVING ASTHMA EXACERBATION OBESITY-HYPOVENTILATION SYNDROME MORBID OBESITY DM HTN H/O MYCOPLASMA PNEUMONIA PLAN IV STEROIDS SAME DOSE,START TAPER IN AM INCENTIVE SPIROMETRY INHALED BRONCHODILATORS O2 TO MAINTAIN SAT 90% OR GREATER BIPAP AT NIGHT AND PRN ABX MONITOR PEAK FLOW GLYCEMIC CONTROL DR GUERRERO Problem List - Problems (1) Acute on chronic respiratory failure with hypoxemia Code(s): J96.21 - ACUTE AND CHRONIC RESPIRATORY FAILURE WITH HYPOXIA (2) Acute hypoxemic respiratory failure Code(s): J96.01 - ACUTE RESPIRATORY FAILURE WITH HYPOXIA (3) Acute and chronic respiratory failure Code(s): J96.20 - ACUTE AND CHR RESP FAILURE, UNSP W HYPOXIA OR HYPERCAPNIA (4) Asthma exacerbation Code(s): J45.901 - UNSPECIFIED ASTHMA WITH (ACUTE) EXACERBATION (5) MARTHA (obstructive sleep apnea) Code(s): G47.33 - OBSTRUCTIVE SLEEP APNEA (ADULT) (PEDIATRIC) (6) Wheezing Code(s): R06.2 - WHEEZING
[2018-09-24] MEDS: INSULIN (LEVEMIR) 100 UNITS/ML UNITS SQ SCH (22:35)
[2018-09-25] MEDS: methylPREDNISolone NA SUCC 40 MG/1 ML VIAL IVPUSH SCH ×3 (01:36→21:36)
[2018-09-25 06:55] LABS: BASO % 0.2 % (0-2.0); HEMATOCRIT 40.6 % (35.4-49); HEMOGLOBIN 13.1 GM/dL (11.7-16.9); LYMPH % 6.7 % (8-40); MCH 26.7 pg (25.7-33.7); MCHC 32.3 g/dl (32.0-35.9); MEAN CELL VOLUME 82.7 fl (80-96); MEAN PLT VOLUME 8.1 fl (7.5-11.1); MONO % 5.2 % (3.8-10.2); NEUT % 87.9 % (42.8-82.8); PLATELET COUNT 460 K/MM3 (134-434); RBC 4.92 M/mm3 (4.00-5.60); RDW 13.9 % (11.9-15.9); WHITE BLOOD COUNT 19.4 K/mm3 (4.0-10.0)
[2018-09-25 07:04] LABS: ALBUMIN 3.2 g/dl (3.4-5.0); BILIRUBIN,TOTAL 0.7 mg/dL (0.2-1); CALCIUM 8.8 mg/dL (8.5-10.1); CREATININE 0.6 mg/dL (0.55-1.3); POTASSIUM 4.4 mmol/L (3.5-5.1); TOT PROT 8.1 g/dl (6.4-8.2)
[2018-09-25] MEDS: HEPARIN NA (PORCINE) 5,000 UNITS/ML 1ML VIAL SQ SCH ×3 (07:09→21:36)
[2018-09-25] MEDS: INSULIN SLIDING SCALE (NOVOLOG) 1 VIAL SQ SCH ×4 (07:09→21:37)
[2018-09-25] MEDS: ALBUTEROL SO4 2.5/IPRATROPIUM 0.5 INH SOL 3 ML VIAL.NEB. NEB SCH ×4 (08:00→20:07)
[2018-09-25] MEDS ORDERED: PT OWN MED DRAWER 7, Y5N ONE (10:10)
[2018-09-25] MEDS ORDERED: DEXTROSE 5%-WATER - 50 ML IVPB ONE (10:11)
[2018-09-25] MEDS ORDERED: cefTRIAXone SODIUM 1 GM VIAL ONE (10:11)
[2018-09-25] MEDS: amLODIPine BESYLATE 10 MG TABLET (FP) PO SCH (10:13)
[2018-09-25] MEDS: CEFTRIAXONE 1 GM in DEXTROSE 5%-WATER - 50 ML IVPB SCH (10:13)
[2018-09-25] MEDS: AZITHROMYCIN IVPB 500 MG/250 ML BAG IVPB SCH (10:13)
[2018-09-25] MEDS: PANTOPRAZOLE 40 MG TABLET (FP) PO SCH (10:14)
--- NOTE | 2018-09-25 10:59 | PN ---
Progress Note (short form) - Note Progress Note: OOB to chair on NC O2. Breathing feels better today. No CP. Less SOB. Congested cough, thick with small amounts of dried blood noted. Used NIPPV overnight. Intake & Output 09/22/18 09/23/18 09/24/18 09/25/18 23:59 23:59 23:59 23:59 Intake Total 250 1150 2300 70 Output Total 1000 2300 650 Balance 250 150 0 -580 Weight 383 lb 15.983 oz Last Vital Signs Temp Pulse Resp BP Pulse Ox 97.7 F 82 20 128/70 93 L 09/25/18 06:00 09/25/18 06:00 09/25/18 09:00 09/25/18 06:00 09/25/18 09:21 Active Medications Albuterol Sulfate (Ventolin 0.083% Nebulizer Soln -) 1 amp NEB Q4H PRN PRN Reason: SHORT OF BREATH/WHEEZING Albuterol/Ipratropium (Duoneb -) 1 amp NEB RQID JOSSY Last Admin: 09/25/18 08:00 Dose: 1 amp Amlodipine Besylate (Norvasc -) 10 mg PO DAILY JOSSY Last Admin: 09/25/18 10:13 Dose: 10 mg Heparin Sodium (Porcine) (Heparin -) 5,000 unit SQ TID JOSSY Last Admin: 09/25/18 07:09 Dose: 5,000 unit Azithromycin (Zithromax 500mg Ivpb (Pre-Docked)) 500 mg in 250 mls @ 250 mls/ hr IVPB DAILY JOSSY Last Admin: 09/25/18 10:13 Dose: 250 mls/hr Ceftriaxone Sodium 1 gm/ (Dextrose) 50 mls @ 100 mls/hr IVPB DAILY JOSSY; Protocol Last Admin: 09/25/18 10:13 Dose: 100 mls/hr Insulin Aspart (Novolog Vial Sliding Scale -) 1 vial SQ ACHS JOSSY; Protocol Last Admin: 09/25/18 07:09 Dose: 6 unit Insulin Detemir (Levemir Vial) 15 units SQ HS JOSSY Last Admin: 09/24/18 22:35 Dose: 15 unit Methylprednisolone Sodium Succinate (Solu-Medrol -) 60 mg IVPUSH Q8H-IV JOSSY Last Admin: 09/25/18 10:14 Dose: 60 mg Pantoprazole Sodium (Protonix -) 40 mg PO DAILY [facility] Last Admin: 09/25/18 10:14 Dose: 40 mg Constitutional: Yes: NAD, Obese HENT: Yes: WNL Neck: Yes: WNL Cardiovascular: Yes: Regular Rate and Rhythm, S1, S2 Respiratory: Yes: Scattered rhonchi, no wheezing appreciated Gastrointestinal: Yes: Normal Bowel Sounds, Soft Extremities: Yes: WNL Edema: Yes Labs: Laboratory Results - last 24 hr 09/24/18 09/24/18 09/24/18 11:29 16:56 21:04 WBC RBC Hgb Hct MCV MCH MCHC RDW Plt Count MPV Absolute Neuts (auto) Neutrophils % Lymphocytes % Monocytes % Eosinophils % Basophils % Nucleated RBC % Sodium Potassium Chloride Carbon Dioxide Anion Gap BUN Creatinine Est GFR (CKD-EPI)AfAm Est GFR (CKD-EPI)NonAf POC Glucometer 305 322 306 Random Glucose Calcium Total Bilirubin AST ALT Alkaline Phosphatase Total Protein Albumin 09/25/18 09/25/18 09/25/18 05:47 06:00 06:00 WBC 19.4 H RBC 4.92 Hgb 13.1 Hct 40.6 MCV 82.7 MCH 26.7 MCHC 32.3 RDW 13.9 Plt Count 460 H MPV 8.1 Absolute Neuts (auto) 17.0 H Neutrophils % 87.9 H Lymphocytes % 6.7 L Monocytes % 5.2 D Eosinophils % 0.0 Basophils % 0.2 Nucleated RBC % 0 Sodium 134 L Potassium 4.4 Chloride 100 Carbon Dioxide 25 Anion Gap 9 BUN 14 Creatinine 0.6 Est GFR (CKD-EPI)AfAm 160.83 Est GFR (CKD-EPI)NonAf 138.76 POC Glucometer 269 Random Glucose 266 H Calcium 8.8 Total Bilirubin 0.7 AST 35 ALT 54 Alkaline Phosphatase 102 Total Protein 8.1 Albumin 3.2 L Problem List - Problems (1) Acute on chronic respiratory failure with hypoxemia Code(s): J96.21 - ACUTE AND CHRONIC RESPIRATORY FAILURE WITH HYPOXIA (2) Acute hypoxemic respiratory failure Code(s): J96.01 - ACUTE RESPIRATORY FAILURE WITH HYPOXIA (3) Acute and chronic respiratory failure Code(s): J96.20 - ACUTE AND CHR RESP FAILURE, UNSP W HYPOXIA OR HYPERCAPNIA (4) Asthma exacerbation Code(s): J45.901 - UNSPECIFIED ASTHMA WITH (ACUTE) EXACERBATION (5) MARTHA (obstructive sleep apnea) Code(s): G47.33 - OBSTRUCTIVE SLEEP APNEA (ADULT) (PEDIATRIC) (6) Wheezing Code(s): R06.2 - WHEEZING Assessment/Plan IMP ACUTE HYPOXEMIC RESPIRATORY FAILURE IMPROVING ASTHMA EXACERBATION OBESITY-HYPOVENTILATION SYNDROME MORBID OBESITY DM HTN H/O MYCOPLASMA PNEUMONIA PLAN IV STEROID TAPER INCENTIVE SPIROMETRY INHALED BRONCHODILATORS O2 TO MAINTAIN SAT 90% OR GREATER BIPAP AT NIGHT AND PRN ABX MONITOR PEAK FLOW GLYCEMIC CONTROL DR SORENSON
[2018-09-25 11:27] LABS: ANISOCYTOSIS 0; MACROCYTOSIS 0; PLATELET ESTIMATE NORMAL
--- NOTE | 2018-09-25 16:06 | PN ---
Physical Exam: SUBJECTIVE: Patient seen and examined OBJECTIVE: Vital Signs Period Temp Pulse Resp BP Sys/Basilio Pulse Ox Last 24 Hr 97.7 F-98.0 F 72-96 18-20 117-144/61-82 93-96 GENERAL: The patient is awake, alert, and fully oriented, in no acute distress. HEAD: Normal with no signs of trauma. EYES: PERRL, extraocular movements intact, sclera anicteric, conjunctiva clear. No ptosis. ENT: Ears normal, nares patent, oropharynx clear without exudates, moist mucous membranes. NECK: Trachea midline, full range of motion, supple. LUNGS: Breath sounds equal bur dimished at bases, scattered rhonchi , no wheezes , no crackles, no accessory muscle use. HEART: Regular rate and rhythm, S1, S2 without murmur, rub or gallop. ABDOMEN: Soft, nontender, obese, normoactive bowel sounds, no guarding, no rebound, no hepatosplenomegaly, no masses. EXTREMITIES: 2+ pulses, warm, well-perfused, 1+ edema BL NEUROLOGICAL:Normal speech, gait not observed, sitting in chair PSYCH: Normal mood, normal affect. SKIN: Warm, dry, normal turgor, no rashes or lesions noted Laboratory Results - last 24 hr 09/24/18 09/24/18 09/25/18 16:56 21:04 05:47 WBC RBC Hgb Hct MCV MCH MCHC RDW Plt Count MPV Absolute Neuts (auto) Neutrophils % Neutrophils % (Manual) Band Neutrophils % Lymphocytes % Lymphocytes % (Manual) Monocytes % Monocytes % (Manual) Eosinophils % Eosinophils % (Manual) Basophils % Basophils % (Manual) Myelocytes % (Man) Promyelocytes % (Man) Blast Cells % (Manual) Nucleated RBC % Metamyelocytes Hypochromia Platelet Estimate Polychromasia Poikilocytosis Anisocytosis Microcytosis Macrocytosis Sodium Potassium Chloride Carbon Dioxide Anion Gap BUN Creatinine Est GFR (CKD-EPI)AfAm Est GFR (CKD-EPI)NonAf POC Glucometer 322 306 269 Random Glucose Calcium Total Bilirubin AST ALT Alkaline Phosphatase Total Protein Albumin 09/25/18 09/25/18 09/25/18 06:00 06:00 11:12 WBC 19.4 H RBC 4.92 Hgb 13.1 Hct 40.6 MCV 82.7 MCH 26.7 MCHC 32.3 RDW 13.9 Plt Count 460 H MPV 8.1 Absolute Neuts (auto) 17.0 H Neutrophils % 87.9 H Neutrophils % (Manual) 88.8 H Band Neutrophils % 0.0 Lymphocytes % 6.7 L Lymphocytes % (Manual) 6.1 L Monocytes % 5.2 D Monocytes % (Manual) 5 Eosinophils % 0.0 Eosinophils % (Manual) 0.0 Basophils % 0.2 Basophils % (Manual) 0.0 Myelocytes % (Man) 0 Promyelocytes % (Man) 0 Blast Cells % (Manual) 0 Nucleated RBC % 0 Metamyelocytes 0 Hypochromia 0 Platelet Estimate Normal Polychromasia 0 Poikilocytosis 0 Anisocytosis 0 Microcytosis 0 Macrocytosis 0 Sodium 134 L Potassium 4.4 Chloride 100 Carbon Dioxide 25 Anion Gap 9 BUN 14 Creatinine 0.6 Est GFR (CKD-EPI)AfAm 160.83 Est GFR (CKD-EPI)NonAf 138.76 POC Glucometer 279 Random Glucose 266 H Calcium 8.8 Total Bilirubin 0.7 AST 35 ALT 54 Alkaline Phosphatase 102 Total Protein 8.1 Albumin 3.2 L Active Medications Generic Name Dose Route Start Last Admin Trade Name Freq PRN Reason Stop Dose Admin Albuterol Sulfate 1 amp 09/23/18 01:13 Ventolin 0.083% Nebulizer Soln - NEB Q4H PRN SHORT OF BREATH/WHEEZING Albuterol/Ipratropium 1 amp 09/23/18 08:00 09/25/18 08:00 Duoneb - NEB 1 amp RQID JOSSY Administration Amlodipine Besylate 10 mg 09/23/18 10:00 09/25/18 10:13 Norvasc - PO 10 mg DAILY JOSSY Administration Heparin Sodium (Porcine) 5,000 unit 09/23/18 06:00 09/25/18 13:18 Heparin - SQ 5,000 unit TID JOSSY Administration Azithromycin 500 mg in 250 mls @ 250 mls/hr 09/23/18 10:00 09/25/18 10:13 Zithromax 500mg Ivpb (Pre-Docked) IVPB 250 mls/hr DAILY JOSSY Administration Ceftriaxone Sodium 1 gm/ 50 mls @ 100 mls/hr 09/23/18 10:00 09/25/18 10:13 Dextrose IVPB 100 mls/hr DAILY JOSSY Administration Protocol Insulin Aspart 1 vial 09/23/18 07:00 09/25/18 12:11 Novolog Vial Sliding Scale - SQ 6 unit ACHS JOSSY Administration Protocol Insulin Detemir 15 units 09/23/18 22:00 09/24/18 22:35 Levemir Vial SQ 15 unit HS JOSSY Administration Methylprednisolone Sodium Succinate 40 mg 09/25/18 22:00 Solu-Medrol - IVPUSH BID JOSSY Pantoprazole Sodium 40 mg 09/23/18 10:00 09/25/18 10:14 Protonix - PO 40 mg DAILY JOSSY Administration ASSESSMENT/PLAN: Patient is a 28 year old male with a past medical history of HTN, Type II NIDDM , morbid obesity, hypoventilation syndrome, MARTHA on home CPAP. Hospitalized in July 2018 for mycoplasma pneumonia. Admitted for hypoxic respiratory failure likely secondary to asthma exacerbation. 1. Hypoxic respiratory failure likely secondary to acute asthma exacerbation - NC @ 4L to maintain sat >90%normal oxygen saturations -titrate off oxygen as tolerated. - bipap at night with home pressures -appreciate pulmonary recomendations -plan is to taper solumedrol as per pulm 2. Hypertension chronic -manintain norvasc at 10mg 3. Type II NIDDM/diabetes -maintain SS -increase levemer to 20u qhs to maintain better glymcemic control. -continue on diabetic diet -nutrition counseling 4. Leukocytosis persists -afebrile most likely secondary to solumedrol. -blood cultures remain without growth -legionellla negative final result -continor to monitor wbc 5. DVT prohp -heparin sq -ambulate ad feliciano 6. Dispo -mainatin as inpatient -full code Visit type - Emergency Visit Emergency Visit: Yes ED Registration Date: 09/23/18 Care time: The patient presented to the Emergency Department on the above date and was hospitalized for further evaluation of their emergent condition. - New Patient This patient is new to me today: Yes Date on this admission: 09/25/18 - Critical Care Critical Care patient: No - Discharge Referral Referred to [facility] Med P.C.: No
[2018-09-25] MEDS ORDERED: INSULIN (LEVEMIR) 100 UNITS/ML UNITS SQ SCH (22:00)
[2018-09-26] MEDS: HEPARIN NA (PORCINE) 5,000 UNITS/ML 1ML VIAL SQ SCH ×3 (07:00→21:11)
[2018-09-26] MEDS: INSULIN SLIDING SCALE (NOVOLOG) 1 VIAL SQ SCH ×4 (07:00→21:11)
[2018-09-26] MEDS: ALBUTEROL SO4 2.5/IPRATROPIUM 0.5 INH SOL 3 ML VIAL.NEB. NEB SCH ×4 (07:25→20:35)
[2018-09-26] MEDS ORDERED: cefTRIAXone SODIUM 1 GM VIAL ONE (08:25)
[2018-09-26] MEDS ORDERED: DEXTROSE 5%-WATER - 50 ML IVPB ONE (08:25)
[2018-09-26] MEDS: CEFTRIAXONE 1 GM in DEXTROSE 5%-WATER - 50 ML IVPB SCH (09:02)
[2018-09-26] MEDS: amLODIPine BESYLATE 10 MG TABLET (FP) PO SCH (09:02)
[2018-09-26] MEDS: AZITHROMYCIN IVPB 500 MG/250 ML BAG IVPB SCH (09:02)
[2018-09-26] MEDS: PANTOPRAZOLE 40 MG TABLET (FP) PO SCH (09:02)
[2018-09-26] MEDS: methylPREDNISolone NA SUCC 40 MG/1 ML VIAL IVPUSH SCH (09:02)
[2018-09-26 09:51] LABS: BASO % 0.3 % (0-2.0); HEMOGLOBIN 13.6 GM/dL (11.7-16.9); LYMPH % 6.8 % (8-40); MCH 26.8 pg (25.7-33.7); MCHC 32.4 g/dl (32.0-35.9); MEAN CELL VOLUME 82.7 fl (80-96); MEAN PLT VOLUME 7.7 fl (7.5-11.1); MONO % 8.8 % (3.8-10.2); NEUT % 84.1 % (42.8-82.8); PLATELET COUNT 462 K/MM3 (134-434); RBC 5.07 M/mm3 (4.00-5.60); RDW 13.7 % (11.9-15.9); WHITE BLOOD COUNT 22.5 K/mm3 (4.0-10.0)
[2018-09-26 10:20] LABS: ALBUMIN 3.3 g/dl (3.4-5.0); BILIRUBIN,TOTAL 0.7 mg/dL (0.2-1); CALCIUM 8.9 mg/dL (8.5-10.1); CREATININE 0.7 mg/dL (0.55-1.3); MAGNESIUM 2.2 mg/dL (1.8-2.4); TOT PROT 8.2 g/dl (6.4-8.2)
[2018-09-26] MEDS: INSULIN (LEVEMIR) 100 UNITS/ML UNITS SQ SCH ×2 (11:05→21:11)
--- NOTE | 2018-09-26 12:07 | PN ---
Physical Exam: SUBJECTIVE: Patient seen and examined at beside in chair OBJECTIVE: Vital Signs Period Temp Pulse Resp BP Sys/Basilio Pulse Ox Last 24 Hr 97.6 F-98.7 F 69-98 18-20 131-165/67-89 92-98 GENERAL: The patient is awake, alert, and fully oriented, in no acute distress. HEAD: Normal with no signs of trauma. EYES: PERRL, extraocular movements intact, sclera anicteric, conjunctiva clear. No ptosis. ENT: Ears normal, nares patent, oropharynx clear without exudates, moist mucous membranes. NECK: Trachea midline, full range of motion, supple. LUNGS: Breath sounds equal bur dimished at bases, scattered rhonchi , wheezing to uppler damon, no crackles, no accessory muscle use. HEART: Regular rate and rhythm, S1, S2 without murmur, rub or gallop. ABDOMEN: Soft, nontender, obese, normoactive bowel sounds, no guarding, no rebound, no hepatosplenomegaly, no masses. EXTREMITIES: 2+ pulses, warm, well-perfused, 1+ edema BL NEUROLOGICAL:Normal speech, gait observed in hallway as steady PSYCH: Normal mood, normal affect. SKIN: Warm, dry, normal turgor, no rashes or lesions noted Laboratory Results - last 24 hr 09/25/18 09/25/18 09/25/18 06:00 16:37 21:06 WBC RBC Hgb Hct MCV MCH MCHC RDW Plt Count MPV Absolute Neuts (auto) Neutrophils % Neutrophils % (Manual) 88.8 H Band Neutrophils % 0.0 Lymphocytes % Lymphocytes % (Manual) 6.1 L Monocytes % Monocytes % (Manual) 5 Eosinophils % Eosinophils % (Manual) 0.0 Basophils % Basophils % (Manual) 0.0 Myelocytes % (Man) 0 Promyelocytes % (Man) 0 Blast Cells % (Manual) 0 Nucleated RBC % Metamyelocytes 0 Hypochromia 0 Platelet Estimate Normal Polychromasia 0 Poikilocytosis 0 Anisocytosis 0 Microcytosis 0 Macrocytosis 0 Sodium Potassium Chloride Carbon Dioxide Anion Gap BUN Creatinine Est GFR (CKD-EPI)AfAm Est GFR (CKD-EPI)NonAf POC Glucometer 352 363 Random Glucose Calcium Magnesium Total Bilirubin AST ALT Alkaline Phosphatase Total Protein Albumin 09/26/18 09/26/18 09/26/18 05:37 09:20 09:20 WBC 22.5 H RBC 5.07 Hgb 13.6 Hct 42.0 MCV 82.7 MCH 26.8 MCHC 32.4 RDW 13.7 Plt Count 462 H MPV 7.7 Absolute Neuts (auto) 18.9 H Neutrophils % 84.1 H Neutrophils % (Manual) Band Neutrophils % Lymphocytes % 6.8 L Lymphocytes % (Manual) Monocytes % 8.8 Monocytes % (Manual) Eosinophils % 0.0 Eosinophils % (Manual) Basophils % 0.3 Basophils % (Manual) Myelocytes % (Man) Promyelocytes % (Man) Blast Cells % (Manual) Nucleated RBC % 0 Metamyelocytes Hypochromia Platelet Estimate Polychromasia Poikilocytosis Anisocytosis Microcytosis Macrocytosis Sodium 132 L Potassium 4.0 Chloride 96 L Carbon Dioxide 27 Anion Gap 10 BUN 14 Creatinine 0.7 Est GFR (CKD-EPI)AfAm 150.95 Est GFR (CKD-EPI)NonAf 130.24 POC Glucometer 315 Random Glucose 334 H* Calcium 8.9 Magnesium 2.2 Total Bilirubin 0.7 AST 27 ALT 60 Alkaline Phosphatase 107 Total Protein 8.2 Albumin 3.3 L 09/26/18 10:48 WBC RBC Hgb Hct MCV MCH MCHC RDW Plt Count MPV Absolute Neuts (auto) Neutrophils % Neutrophils % (Manual) Band Neutrophils % Lymphocytes % Lymphocytes % (Manual) Monocytes % Monocytes % (Manual) Eosinophils % Eosinophils % (Manual) Basophils % Basophils % (Manual) Myelocytes % (Man) Promyelocytes % (Man) Blast Cells % (Manual) Nucleated RBC % Metamyelocytes Hypochromia Platelet Estimate Polychromasia Poikilocytosis Anisocytosis Microcytosis Macrocytosis Sodium Potassium Chloride Carbon Dioxide Anion Gap BUN Creatinine Est GFR (CKD-EPI)AfAm Est GFR (CKD-EPI)NonAf POC Glucometer 334 Random Glucose Calcium Magnesium Total Bilirubin AST ALT Alkaline Phosphatase Total Protein Albumin Active Medications Generic Name Dose Route Start Last Admin Trade Name Freq PRN Reason Stop Dose Admin Albuterol Sulfate 1 amp 09/23/18 01:13 Ventolin 0.083% Nebulizer Soln - NEB Q4H PRN SHORT OF BREATH/WHEEZING Albuterol/Ipratropium 1 amp 09/23/18 08:00 09/26/18 11:19 Duoneb - NEB 1 amp RQID JOSSY Administration Amlodipine Besylate 10 mg 09/23/18 10:00 09/26/18 09:02 Norvasc - PO 10 mg DAILY JOSSY Administration Heparin Sodium (Porcine) 5,000 unit 09/23/18 06:00 09/26/18 07:00 Heparin - SQ 5,000 unit TID JOSSY Administration Azithromycin 500 mg in 250 mls @ 250 mls/hr 09/23/18 10:00 09/26/18 09:02 Zithromax 500mg Ivpb (Pre-Docked) IVPB 250 mls/hr DAILY JOSSY Administration Ceftriaxone Sodium 1 gm/ 50 mls @ 100 mls/hr 09/23/18 10:00 09/26/18 09:02 Dextrose IVPB 100 mls/hr DAILY JOSSY Administration Protocol Insulin Aspart 1 vial 09/26/18 12:04 Novolog Vial Sliding Scale - SQ ACHS [facility] Protocol Insulin Detemir 20 units 09/26/18 10:15 09/26/18 11:05 Levemir Vial SQ 20 units BID@0700,2200 JOSSY Administration Methylprednisolone Sodium Succinate 40 mg 09/25/18 22:00 09/26/18 09:02 Solu-Medrol - IVPUSH 40 mg BID JOSSY Administration Pantoprazole Sodium 40 mg 09/23/18 10:00 09/26/18 09:02 Protonix - PO 40 mg DAILY JOSSY Administration ASSESSMENT/PLAN: Patient is a 28 year old male with a past medical history of HTN, Type II NIDDM , morbid obesity, hypoventilation syndrome, MARTHA on home CPAP. Hospitalized in July 2018 for mycoplasma pneumonia. Admitted for hypoxic respiratory failure likely secondary to asthma exacerbation. 1. Hypoxic respiratory failure likely secondary to acute asthma exacerbation - NC @ 4L to maintain sat >90%normal oxygen saturations -titrate off oxygen as tolerated. - bipap at night with home pressures -appreciate pulmonary recomendations -plan is to taper solumedrol as per pulm -Pre and post ambulation O2 pardeep obtained. 92%pre/92% post. No need for O2 at home as this time 2. Hypertension chronic -manintain norvasc at 10mg 3. Type II NIDDM/diabetes -increased SS to tighten glycemic cobtrol -increase levemer to 20u BID -continue on diabetic diet -nutrition counseling -DM counseling ongoing to prepare for discharge 4. Leukocytosis persists -afebrile most likely secondary to solumedrol. -blood cultures remain without growth -legionellla negative final result -continor to monitor wbc continues to rise 5. DVT prohp -heparin sq -ambulate ad feliciano 6. Dispo -mainatin as inpatient -full code -preparation for discharge on going Visit type - Emergency Visit Emergency Visit: Yes ED Registration Date: 09/23/18 Care time: The patient presented to the Emergency Department on the above date and was hospitalized for further evaluation of their emergent condition. - New Patient This patient is new to me today: No - Critical Care Critical Care patient: No - Discharge Referral Referred to [facility] Med P.C.: No
[2018-09-26 12:24] LABS: ANISOCYTOSIS 0; MACROCYTOSIS 0; PLATELET ESTIMATE NORMAL
--- NOTE | 2018-09-26 13:00 | PN ---
Progress Note (short form) - Note Progress Note: PULMONARY APPEARS STABLE VSS/AFEBRILE Constitutional: Yes: Calm, Obese HENT: Yes: WNL Neck: Yes: WNL Cardiovascular: Yes: Regular Rate and Rhythm, S1, S2 Respiratory: Yes: Wheezes (LESS WHEEZES BILATERALLY) Gastrointestinal: Yes: Normal Bowel Sounds, Soft Extremities: Yes: WNL Edema: Yes Labs/meds/notes/images reviewed IMP ACUTE HYPOXEMIC RESPIRATORY FAILURE IMPROVING ASTHMA EXACERBATION OBESITY-HYPOVENTILATION SYNDROME MORBID OBESITY DM HTN H/O MYCOPLASMA PNEUMONIA PLAN IV STEROIDS TO TAPER INCENTIVE SPIROMETRY INHALED BRONCHODILATORS O2 TO MAINTAIN SAT 90% OR GREATER BIPAP AT NIGHT AND PRN ABX MONITOR PEAK FLOW GLYCEMIC CONTROL Guerita TOLENTINO MD
--- NOTE | 2018-09-26 14:33 | CON.ID ---
Consult - Alcohol/Substance Use Hx Alcohol Use: No - Smoking History Smoking history: Never smoked Home Medications - Allergies Allergies/Adverse Reactions: Allergies Allergy/AdvReac Type Severity Reaction Status Date / Time strawberry AdvReac Unknown Verified 09/22/18 17:52 - Home Medications Home Medications: Ambulatory Orders Albuterol Sulfate Inhaler - [Ventolin Hfa Inhaler -] 2 inh PO Q6H PRN 09/22/18 Amlodipine Besylate [Norvasc -] 10 mg PO DAILY 09/22/18 Glipizide/Metformin HCl [Glipizide-Metformin 5-500 mg] 2 tab PO BID 09/22/18 Physical Exam Vital Signs: Vital Signs Temperature 97.8 F 09/26/18 11:11 Pulse Rate 87 09/26/18 11:11 Respiratory Rate 18 09/26/18 11:11 Blood Pressure 147/76 09/26/18 11:11 O2 Sat by Pulse Oximetry (%) 92 L 09/26/18 11:11 Labs: CBC, BMP 09/26/18 09:20 09/26/18 09:20
--- NOTE | 2018-09-26 16:10 | PN ---
Progress Note (short form) - Note Progress Note: Spoke with Dr Billings via telephone. Recommended to continue the Ceftriaxone given that patient is still wheezing. Ordered placed Visit type - Emergency Visit Emergency Visit: Yes ED Registration Date: 09/23/18 Care time: The patient presented to the Emergency Department on the above date and was hospitalized for further evaluation of their emergent condition. - New Patient This patient is new to me today: No - Critical Care Critical Care patient: No - Discharge Referral Referred to [facility] Med P.C.: No
[2018-09-26 16:16] VITALS: BMI 54.9
[2018-09-27] MEDS: INSULIN (LEVEMIR) 100 UNITS/ML UNITS SQ SCH ×2 (06:48→22:18)
[2018-09-27] MEDS: INSULIN SLIDING SCALE (NOVOLOG) 1 VIAL SQ SCH ×4 (06:48→22:15)
[2018-09-27] MEDS: HEPARIN NA (PORCINE) 5,000 UNITS/ML 1ML VIAL SQ SCH ×3 (06:49→22:18)
[2018-09-27 07:38] LABS: BASO % 0.6 % (0-2.0); EOS % 0.8 % (0-4.5); HEMATOCRIT 44.9 % (35.4-49); HEMOGLOBIN 14.8 GM/dL (11.7-16.9); LYMPH % 21.9 % (8-40); MCH 27.1 pg (25.7-33.7); MEAN CELL VOLUME 82.2 fl (80-96); MEAN PLT VOLUME 7.8 fl (7.5-11.1); MONO % 6.1 % (3.8-10.2); NEUT % 70.6 % (42.8-82.8); PLATELET COUNT 483 K/MM3 (134-434); RBC 5.47 M/mm3 (4.00-5.60); RDW 13.7 % (11.9-15.9); WHITE BLOOD COUNT 18.7 K/mm3 (4.0-10.0)
[2018-09-27 08:02] LABS: ALBUMIN 3.3 g/dl (3.4-5.0); BILIRUBIN,TOTAL 0.9 mg/dL (0.2-1); CALCIUM 8.8 mg/dL (8.5-10.1); CREATININE 0.6 mg/dL (0.55-1.3); MAGNESIUM 2.3 mg/dL (1.8-2.4); POTASSIUM 4.3 mmol/L (3.5-5.1); TOT PROT 8.4 g/dl (6.4-8.2)
--- NOTE | 2018-09-27 08:39 | PN ---
Physical Exam: SUBJECTIVE: Patient seen and examined at the bedside. tolerating episodes of room air, denies any shortness of breath or chest discomfort. eating well, no constipation. patient reports that he was d/c on insulin on last hospitalization at [facility]. He reports using long acting and short acting insulin at home. OBJECTIVE: [place] medical records reviewed. patient admitted at [facility] from (08/02-08/08/18) for asthma exacerbation/mycoplasma pneumonia. on discharge from [facility] he was prescribed a humalog kiwi pen with a sliding scale and a basaglar kiwi pen 44 units at hs. for elevated blood sugars. 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 wbc trending down @ 18 Vital Signs Period Temp Pulse Resp BP Sys/Basilio Pulse Ox Last 24 Hr 97.6 F-98.5 F 66-98 18-20 124-147/64-76 92-97 GENERAL: The patient is awake, alert, in no acute distress. HEAD: Normal with no signs of trauma. EYES: PERRL, extraocular movements intact, sclera anicteric, conjunctiva clear. No ptosis. ENT: Ears normal, nares patent, oropharynx clear without exudates, moist mucous membranes. NECK: Trachea midline, full range of motion, supple. LUNGS: scattered wheezing, tolerating room air. HEART: Regular rate and rhythm ABDOMEN: Soft, nontender, nondistended, normoactive bowel sounds, no guarding, no rebound, no hepatosplenomegaly, no masses. EXTREMITIES: no edema. NEUROLOGICAL: Normal speech, gait steady PSYCH: Normal mood, normal affect. SKIN: Warm, dry, normal turgor, no rashes or lesions noted Laboratory Results - last 24 hr 09/26/18 09/26/18 09/26/18 09:20 09:20 10:48 WBC 22.5 H RBC 5.07 Hgb 13.6 Hct 42.0 MCV 82.7 MCH 26.8 MCHC 32.4 RDW 13.7 Plt Count 462 H MPV 7.7 Absolute Neuts (auto) 18.9 H Neutrophils % 84.1 H Neutrophils % (Manual) 80.8 Band Neutrophils % 1.9 Lymphocytes % 6.8 L Lymphocytes % (Manual) 6.7 L Monocytes % 8.8 Monocytes % (Manual) 11 H D Eosinophils % 0.0 Eosinophils % (Manual) 0.0 Basophils % 0.3 Basophils % (Manual) 0.0 Myelocytes % (Man) 0 Promyelocytes % (Man) 0 Blast Cells % (Manual) 0 Nucleated RBC % 0 Metamyelocytes 0 Hypochromia 0 Platelet Estimate Normal Polychromasia 0 Poikilocytosis 0 Anisocytosis 0 Microcytosis 0 Macrocytosis 0 Sodium 132 L Potassium 4.0 Chloride 96 L Carbon Dioxide 27 Anion Gap 10 BUN 14 Creatinine 0.7 Est GFR (CKD-EPI)AfAm 150.95 Est GFR (CKD-EPI)NonAf 130.24 POC Glucometer 334 Random Glucose 334 H* Calcium 8.9 Magnesium 2.2 Total Bilirubin 0.7 AST 27 ALT 60 Alkaline Phosphatase 107 Total Protein 8.2 Albumin 3.3 L 09/26/18 09/26/18 09/27/18 16:34 20:50 05:44 WBC RBC Hgb Hct MCV MCH MCHC RDW Plt Count MPV Absolute Neuts (auto) Neutrophils % Neutrophils % (Manual) Band Neutrophils % Lymphocytes % Lymphocytes % (Manual) Monocytes % Monocytes % (Manual) Eosinophils % Eosinophils % (Manual) Basophils % Basophils % (Manual) Myelocytes % (Man) Promyelocytes % (Man) Blast Cells % (Manual) Nucleated RBC % Metamyelocytes Hypochromia Platelet Estimate Polychromasia Poikilocytosis Anisocytosis Microcytosis Macrocytosis Sodium Potassium Chloride Carbon Dioxide Anion Gap BUN Creatinine Est GFR (CKD-EPI)AfAm Est GFR (CKD-EPI)NonAf POC Glucometer 298 322 205 Random Glucose Calcium Magnesium Total Bilirubin AST ALT Alkaline Phosphatase Total Protein Albumin 09/27/18 09/27/18 06:00 06:00 WBC 18.7 H RBC 5.47 Hgb 14.8 Hct 44.9 MCV 82.2 MCH 27.1 MCHC 33.0 RDW 13.7 Plt Count 483 H MPV 7.8 Absolute Neuts (auto) 13.2 H Neutrophils % 70.6 Neutrophils % (Manual) Band Neutrophils % Lymphocytes % 21.9 D Lymphocytes % (Manual) Monocytes % 6.1 Monocytes % (Manual) Eosinophils % 0.8 D Eosinophils % (Manual) Basophils % 0.6 Basophils % (Manual) Myelocytes % (Man) Promyelocytes % (Man) Blast Cells % (Manual) Nucleated RBC % 0 Metamyelocytes Hypochromia Platelet Estimate Polychromasia Poikilocytosis Anisocytosis Microcytosis Macrocytosis Sodium 133 L Potassium 4.3 Chloride 95 L Carbon Dioxide 29 Anion Gap 9 BUN 13 Creatinine 0.6 Est GFR (CKD-EPI)AfAm 160.83 Est GFR (CKD-EPI)NonAf 138.76 POC Glucometer Random Glucose 189 H Calcium 8.8 Magnesium 2.3 Total Bilirubin 0.9 AST 40 H ALT 73 H Alkaline Phosphatase 115 Total Protein 8.4 H Albumin 3.3 L Active Medications Generic Name Dose Route Start Last Admin Trade Name Freq PRN Reason Stop Dose Admin Albuterol Sulfate 1 amp 09/23/18 01:13 Ventolin 0.083% Nebulizer Soln - NEB Q4H PRN SHORT OF BREATH/WHEEZING Albuterol/Ipratropium 1 amp 09/23/18 08:00 09/26/18 20:35 Duoneb - NEB 1 amp RQID JOSSY Administration Amlodipine Besylate 10 mg 09/23/18 10:00 09/26/18 09:02 Norvasc - PO 10 mg DAILY JOSSY Administration Heparin Sodium (Porcine) 5,000 unit 09/23/18 06:00 09/27/18 06:49 Heparin - SQ 5,000 unit TID JOSSY Administration Azithromycin 500 mg in 250 mls @ 250 mls/hr 09/23/18 10:00 09/26/18 09:02 Zithromax 500mg Ivpb (Pre-Docked) IVPB 250 mls/hr DAILY JOSSY Administration Ceftriaxone Sodium 1 gm/ 50 mls @ 100 mls/hr 09/23/18 10:00 09/26/18 09:02 Dextrose IVPB 100 mls/hr DAILY JOSSY Administration Protocol Insulin Aspart 1 vial 09/26/18 12:04 09/27/18 06:48 Novolog Vial Sliding Scale - SQ 6 units ACHS JOSSY Administration Protocol Insulin Detemir 20 units 09/26/18 10:15 09/27/18 06:48 Levemir Vial SQ 20 units BID@0700,2200 JOSSY Administration Methylprednisolone Sodium Succinate 40 mg 09/27/18 10:00 Solu-Medrol - IVPUSH DAILY JOSSY Pantoprazole Sodium 40 mg 09/23/18 10:00 09/26/18 09:02 Protonix - PO 40 mg DAILY JOSSY Administration ASSESSMENT/PLAN: Patient is a 28 year old male with a past medical history of HTN, Type II NIDDM , morbid obesity, hypoventilation syndrome, MARTHA on home CPAP. Hospitalized in July 2018 for mycoplasma pneumonia at [facility] from (08/02-08/08/18 ) for asthma exacerbation/mycoplasma pneumonia. Admitted for hypoxic respiratory failure at [facility], tranfered to [facility] for closer monitoring. pulm: Hypoxic respiratory failure likely secondary to acute asthma exacerbation. improved. Negative D dimer. Clincally improving. tolerating room air and ambulated w/o need for oxygen. He has hx of MARTHA and on nocturnal bipap. On Solumedrol taper per pulmonary. Rule out pneumonia. On Ceftriaxone, Azithromycin. Heme: Leukocytosis. WBC peaked at 22.5. ID consulted, recommendations appreciated. will continue antibiotics and monitor WBC daily. No signs of infection clinically. no fevers. patient with WBC of 16 on [place] medical records. he has been on and off prednisone for asthma exacerbations. If remains elevated , consider hematology consult as an outpatient. Card: Hypertension. controlled on norvasc 10mg daily. Endo: Type II NIDDM/diabetes. Elevated a1c 10.3. previously 14.5. on SS. will add basal insulin for better control. goal is to have pre-meal insulin <180. On a diabetic diet. patient on short and long acting insulin at home. will refer to endocrinology on discharge GI: elevated ast/alt. stop protonix, will substitute with Zantac. Electrolytes: mild hyponatremia. encourage adequate PO intake. fen tolerating po monitor electrolytes diabetic diet prophy heparin protonix full code Visit type - Emergency Visit Emergency Visit: Yes ED Registration Date: 09/23/18 Care time: The patient presented to the Emergency Department on the above date and was hospitalized for further evaluation of their emergent condition. - New Patient This patient is new to me today: No - Critical Care Critical Care patient: No - Discharge Referral Referred to [facility] Med P.C.: No
[2018-09-27] MEDS: ALBUTEROL SO4 2.5/IPRATROPIUM 0.5 INH SOL 3 ML VIAL.NEB. NEB SCH ×4 (08:55→20:45)
[2018-09-27] MEDS ORDERED: DEXTROSE 5%-WATER - 50 ML IVPB ONE (09:54)
[2018-09-27] MEDS ORDERED: cefTRIAXone SODIUM 1 GM VIAL ONE (09:54)
[2018-09-27] MEDS ORDERED: methylPREDNISolone NA SUCC 40 MG/1 ML VIAL IVPUSH SCH (10:00)
[2018-09-27] MEDS: CEFTRIAXONE 1 GM in DEXTROSE 5%-WATER - 50 ML IVPB SCH (10:10)
[2018-09-27] MEDS: amLODIPine BESYLATE 10 MG TABLET (FP) PO SCH (10:10)
[2018-09-27] MEDS: AZITHROMYCIN IVPB 500 MG/250 ML BAG IVPB SCH (10:10)
--- NOTE | 2018-09-27 12:33 | PN ---
Progress Note (short form) - Note Progress Note: PULMONARY APPEARS STABLE OOB TO CHAIR VSS/AFEBRILE Constitutional: Yes: Calm, Obese HENT: Yes: WNL Neck: Yes: WNL Cardiovascular: Yes: Regular Rate and Rhythm, S1, S2 Respiratory: Yes: Wheezes (LESS WHEEZES BILATERALLY) Gastrointestinal: Yes: Normal Bowel Sounds, Soft Extremities: Yes: WNL Edema: Yes Labs/meds/notes/images reviewed IMP ACUTE HYPOXEMIC RESPIRATORY FAILURE IMPROVING ASTHMA EXACERBATION OBESITY-HYPOVENTILATION SYNDROME MORBID OBESITY DM HTN H/O MYCOPLASMA PNEUMONIA PLAN IV STEROIDS TO ORAL INCENTIVE SPIROMETRY INHALED BRONCHODILATORS O2 TO MAINTAIN SAT 90% OR GREATER BIPAP AT NIGHT AND PRN ABX MONITOR PEAK FLOW GLYCEMIC CONTROL Guerita TOLENTINO MD
--- NOTE | 2018-09-27 12:58 | PN ---
Progress Note, Physician History of Present Illness: stable no new issues still on nasal canula - Current Medication List Current Medications: Active Medications Albuterol Sulfate (Ventolin 0.083% Nebulizer Soln -) 1 amp NEB Q4H PRN PRN Reason: SHORT OF BREATH/WHEEZING Albuterol/Ipratropium (Duoneb -) 1 amp NEB RQID [facility] Last Admin: 09/27/18 11:23 Dose: 1 amp Amlodipine Besylate (Norvasc -) 10 mg PO DAILY [facility] Last Admin: 09/27/18 10:10 Dose: 10 mg Heparin Sodium (Porcine) (Heparin -) 5,000 unit SQ TID [facility] Last Admin: 09/27/18 06:49 Dose: 5,000 unit Azithromycin (Zithromax 500mg Ivpb (Pre-Docked)) 500 mg in 250 mls @ 250 mls/ hr IVPB DAILY [facility] Last Admin: 09/27/18 10:10 Dose: 250 mls/hr Ceftriaxone Sodium 1 gm/ (Dextrose) 50 mls @ 100 mls/hr IVPB DAILY [facility]; Protocol Last Admin: 09/27/18 10:10 Dose: 100 mls/hr Insulin Aspart (Novolog Vial Sliding Scale -) 1 vial SQ ACHS [facility]; Protocol Last Admin: 09/27/18 11:10 Dose: 8 units Insulin Detemir (Levemir Vial) 20 units SQ BID@0700,2200 [facility] Last Admin: 09/27/18 06:48 Dose: 20 units Prednisone (Deltasone -) 40 mg PO DAILY [facility] Ranitidine HCl (Zantac -) 150 mg PO BID [facility] - Objective Vital Signs: Vital Signs Temperature 97.8 F 09/27/18 11:00 Pulse Rate 110 H 09/27/18 11:00 Respiratory Rate 18 09/27/18 11:00 Blood Pressure 136/71 09/27/18 11:00 O2 Sat by Pulse Oximetry (%) 97 09/27/18 11:00 Constitutional: Yes: Calm, Obese Cardiovascular: Yes: Regular Rate and Rhythm Respiratory: Yes: On Nasal O2, Poor Air Entry Gastrointestinal: Yes: Normal Bowel Sounds, Soft Musculoskeletal: Yes: WNL Extremities: Yes: WNL Neurological: Yes: Alert, Oriented Psychiatric: Yes: Alert, Oriented Labs: CBC, BMP 09/27/18 06:00 09/27/18 06:00 INR, PTT INR 1.29 (0.82-1.09) H 09/22/18 11:48 Assessment/Plan 28 year old male with a past medical history of HTN, Type II NIDDM, morbid obesity, hypoventilation syndrome, MARTHA on home CPAP. Hospitalized in July 2018 for mycoplasma pneumonia. Admitted for hypoxic respiratory failure likely secondary to asthma exacerbation. resp failure hypoxia htn dm leukocytosis obesity plan continue current mgmt incentive graciela
[2018-09-27] MEDS: RANITIDINE HCL 150 MG TABLET (FP) PO SCH ×2 (13:54→22:18)
[2018-09-28] MEDS: HEPARIN NA (PORCINE) 5,000 UNITS/ML 1ML VIAL SQ SCH ×3 (06:23→21:40)
[2018-09-28] MEDS: INSULIN SLIDING SCALE (NOVOLOG) 1 VIAL SQ SCH ×4 (06:23→21:40)
[2018-09-28] MEDS: INSULIN (LEVEMIR) 100 UNITS/ML UNITS SQ SCH ×2 (06:26→21:40)
[2018-09-28 07:21] LABS: BASO % 0.5 % (0-2.0); EOS % 0.9 % (0-4.5); HEMATOCRIT 46.1 % (35.4-49); HEMOGLOBIN 14.8 GM/dL (11.7-16.9); LYMPH % 17.6 % (8-40); MCH 26.8 pg (25.7-33.7); MCHC 32.2 g/dl (32.0-35.9); MEAN CELL VOLUME 83.4 fl (80-96); MEAN PLT VOLUME 7.6 fl (7.5-11.1); MONO % 6.2 % (3.8-10.2); NEUT % 74.8 % (42.8-82.8); PLATELET COUNT 508 K/MM3 (134-434); RBC 5.53 M/mm3 (4.00-5.60); RDW 14.1 % (11.9-15.9); WHITE BLOOD COUNT 24.1 K/mm3 (4.0-10.0)
[2018-09-28 07:39] LABS: ALBUMIN 3.3 g/dl (3.4-5.0); CREATININE 0.6 mg/dL (0.55-1.3); MAGNESIUM 2.4 mg/dL (1.8-2.4); POTASSIUM 4.4 mmol/L (3.5-5.1); TOT PROT 8.5 g/dl (6.4-8.2)
[2018-09-28] MEDS: ALBUTEROL SO4 2.5/IPRATROPIUM 0.5 INH SOL 3 ML VIAL.NEB. NEB SCH ×4 (07:50→20:10)
--- NOTE | 2018-09-28 10:21 | PN ---
Physical Exam: SUBJECTIVE: Patient seen and examined at the bedside. sitting in chair, in no acute distress. feels well. wants to go home. denies chills or malaise. OBJECTIVE: clincally appears improved WBC 24.1 w/o signs of sepsis Vital Signs Period Temp Pulse Resp BP Sys/Basilio Pulse Ox Last 24 Hr 97.5 F-98.1 F 72-110 18-20 136-153/59-78 97-97 GENERAL: The patient is awake, alert, in no acute distress. HEAD: Normal with no signs of trauma. EYES: PERRL, extraocular movements intact, sclera anicteric, conjunctiva clear. No ptosis. ENT: Ears normal, nares patent, oropharynx clear without exudates, moist mucous membranes. NECK: Trachea midline, full range of motion, supple. LUNGS: no wheezing, tolerating room air. HEART: Regular rate and rhythm ABDOMEN: Soft, nontender, nondistended, normoactive bowel sounds, no guarding, no rebound, no hepatosplenomegaly, no masses. EXTREMITIES: no edema. NEUROLOGICAL: Normal speech, gait steady PSYCH: Normal mood, normal affect. SKIN: Warm, dry, normal turgor, no rashes or lesions noted Laboratory Results - last 24 hr 09/27/18 09/27/18 09/27/18 11:08 16:41 21:21 WBC RBC Hgb Hct MCV MCH MCHC RDW Plt Count MPV Absolute Neuts (auto) Neutrophils % Lymphocytes % Monocytes % Eosinophils % Basophils % Nucleated RBC % Sodium Potassium Chloride Carbon Dioxide Anion Gap BUN Creatinine Est GFR (CKD-EPI)AfAm Est GFR (CKD-EPI)NonAf POC Glucometer 295 304 343 Random Glucose Calcium Magnesium Total Bilirubin AST ALT Alkaline Phosphatase Total Protein Albumin 09/28/18 09/28/18 09/28/18 06:00 06:00 06:22 WBC 24.1 H RBC 5.53 Hgb 14.8 Hct 46.1 MCV 83.4 MCH 26.8 MCHC 32.2 RDW 14.1 Plt Count 508 H MPV 7.6 Absolute Neuts (auto) 18.0 H Neutrophils % 74.8 Lymphocytes % 17.6 Monocytes % 6.2 Eosinophils % 0.9 Basophils % 0.5 Nucleated RBC % 0 Sodium 136 Potassium 4.4 Chloride 95 L Carbon Dioxide 34 H Anion Gap 6 L BUN 14 Creatinine 0.6 Est GFR (CKD-EPI)AfAm 160.83 Est GFR (CKD-EPI)NonAf 138.76 POC Glucometer 161 Random Glucose 165 H Calcium 9.0 Magnesium 2.4 Total Bilirubin 1.0 AST 58 H ALT 103 H Alkaline Phosphatase 123 H Total Protein 8.5 H Albumin 3.3 L Active Medications Generic Name Dose Route Start Last Admin Trade Name Freq PRN Reason Stop Dose Admin Albuterol Sulfate 1 amp 09/23/18 01:13 Ventolin 0.083% Nebulizer Soln - NEB Q4H PRN SHORT OF BREATH/WHEEZING Albuterol/Ipratropium 1 amp 09/23/18 08:00 09/28/18 07:50 Duoneb - NEB 1 amp RQID JOSSY Administration Amlodipine Besylate 10 mg 09/23/18 10:00 09/27/18 10:10 Norvasc - PO 10 mg DAILY JOSSY Administration Heparin Sodium (Porcine) 5,000 unit 09/23/18 06:00 09/28/18 06:23 Heparin - SQ 5,000 unit TID JOSSY Administration Azithromycin 500 mg in 250 mls @ 250 mls/hr 09/23/18 10:00 09/27/18 10:10 Zithromax 500mg Ivpb (Pre-Docked) IVPB 250 mls/hr DAILY JOSSY Administration Ceftriaxone Sodium 1 gm/ 50 mls @ 100 mls/hr 09/23/18 10:00 09/27/18 10:10 Dextrose IVPB 100 mls/hr DAILY JOSSY Administration Protocol Insulin Aspart 1 vial 09/26/18 12:04 09/28/18 06:23 Novolog Vial Sliding Scale - SQ 4 units ACHS JOSSY Administration Protocol Insulin Detemir 20 units 09/26/18 10:15 09/28/18 06:26 Levemir Vial SQ 20 units BID@0700,2200 JOSSY Administration Prednisone 40 mg 09/28/18 10:00 Deltasone - PO DAILY JOSSY Ranitidine HCl 150 mg 09/27/18 10:00 09/27/18 22:18 Zantac - PO 150 mg BID JOSSY Administration ASSESSMENT/PLAN: Patient is a 28 year old male with a past medical history of HTN, Type II NIDDM , morbid obesity, hypoventilation syndrome, MARTHA on home CPAP. Hospitalized in July 2018 for mycoplasma pneumonia at [facility] from (08/02-08/08/18 ) for asthma exacerbation/mycoplasma pneumonia. Admitted for hypoxic respiratory failure at [facility], tranfered to [facility] for closer monitoring. Problem List - Problems (1) Diabetes mellitus Assessment/Plan: Type II NIDDM/diabetes. Elevated a1c 10.3. previously 14.5. on SS. will add basal insulin for better control. goal is to have pre-meal insulin <180. On a diabetic diet. patient on short and long acting insulin at home. will refer to endocrinology on discharge Code(s): E11.9 - TYPE 2 DIABETES MELLITUS WITHOUT COMPLICATIONS (2) Acute and chronic respiratory failure Assessment/Plan: Improving on supplemental oxygen, tolerating room air pre and post shows no need for home oxygen, but will need one prior to discharge home Code(s): J96.20 - ACUTE AND CHR RESP FAILURE, UNSP W HYPOXIA OR HYPERCAPNIA (3) Acute on chronic respiratory failure with hypoxemia Assessment/Plan: On bipap, supplemental oxygen and prednisone taper. pulmonary following. Code(s): J96.21 - ACUTE AND CHRONIC RESPIRATORY FAILURE WITH HYPOXIA (4) Asthma exacerbation Assessment/Plan: Continue bronchodilators, albuterol prn. will benefit from pulmonary follow up outpatient Hypoxic respiratory failure likely secondary to acute asthma exacerbation. improved. Negative D dimer. Clincally improving. tolerating room air and ambulated w/o need for oxygen. He has hx of MARTHA and on nocturnal bipap. On Solumedrol taper per pulmonary. Rule out pneumonia. On Ceftriaxone, Azithromycin. Code(s): J45.901 - UNSPECIFIED ASTHMA WITH (ACUTE) EXACERBATION Qualifiers: Asthma severity: moderate Asthma persistence: persistent Qualified Code(s ): J45.41 - Moderate persistent asthma with (acute) exacerbation (5) MARTHA (obstructive sleep apnea) Assessment/Plan: on nocturnal bipap Code(s): G47.33 - OBSTRUCTIVE SLEEP APNEA (ADULT) (PEDIATRIC) (6) Wheezing Code(s): R06.2 - WHEEZING (7) Leukocytosis Assessment/Plan: WBC elevated @ 24.1. No signs of sepsis, no fevers or chills. On prednisone at home and continued here Will draw blood cultures and monitor lactic acid also Code(s): D72.829 - ELEVATED WHITE BLOOD CELL COUNT, UNSPECIFIED (8) Liver enzyme elevation Assessment/Plan: monitor liver functions, if remains elevated, will need liver u/s Code(s): R74.8 - ABNORMAL LEVELS OF OTHER SERUM ENZYMES (9) Prophylactic measure Assessment/Plan: fen tolerating po monitor electrolytes diabetic diet prophy heparin zantac Code(s): Z29.9 - ENCOUNTER FOR PROPHYLACTIC MEASURES, UNSPECIFIED Visit type - Emergency Visit Emergency Visit: Yes ED Registration Date: 09/23/18 Care time: The patient presented to the Emergency Department on the above date and was hospitalized for further evaluation of their emergent condition. - New Patient This patient is new to me today: No - Critical Care Critical Care patient: No - Discharge Referral Referred to [facility] Med P.C.: No
[2018-09-28] MEDS ORDERED: cefTRIAXone SODIUM 1 GM VIAL ONE (10:27)
[2018-09-28] MEDS ORDERED: DEXTROSE 5%-WATER - 50 ML IVPB ONE (10:28)
[2018-09-28] MEDS: amLODIPine BESYLATE 10 MG TABLET (FP) PO SCH (10:32)
[2018-09-28] MEDS: CEFTRIAXONE 1 GM in DEXTROSE 5%-WATER - 50 ML IVPB SCH (10:33)
[2018-09-28] MEDS: predniSONE 20 MG TABLET (UD) PO SCH (10:33)
[2018-09-28] MEDS: RANITIDINE HCL 150 MG TABLET (FP) PO SCH ×2 (10:33→21:41)
[2018-09-28] MEDS: AZITHROMYCIN IVPB 500 MG/250 ML BAG IVPB SCH (10:34)
[2018-09-28 12:02] LABS: PLATELET ESTIMATE INCREASED
--- NOTE | 2018-09-28 12:22 | PN ---
Progress Note, Physician - Current Medication List Current Medications: Active Medications Albuterol Sulfate (Ventolin 0.083% Nebulizer Soln -) 1 amp NEB Q4H PRN PRN Reason: SHORT OF BREATH/WHEEZING Albuterol/Ipratropium (Duoneb -) 1 amp NEB RQID [facility] Last Admin: 09/28/18 11:18 Dose: 1 amp Amlodipine Besylate (Norvasc -) 10 mg PO DAILY [facility] Last Admin: 09/28/18 10:32 Dose: 10 mg Heparin Sodium (Porcine) (Heparin -) 5,000 unit SQ TID [facility] Last Admin: 09/28/18 06:23 Dose: 5,000 unit Azithromycin (Zithromax 500mg Ivpb (Pre-Docked)) 500 mg in 250 mls @ 250 mls/ hr IVPB DAILY [facility] Last Admin: 09/28/18 10:34 Dose: 250 mls/hr Ceftriaxone Sodium 1 gm/ (Dextrose) 50 mls @ 100 mls/hr IVPB DAILY [facility]; Protocol Last Admin: 09/28/18 10:33 Dose: 100 mls/hr Insulin Aspart (Novolog Vial Sliding Scale -) 1 vial SQ ACHS [facility]; Protocol Last Admin: 09/28/18 12:03 Dose: 8 units Insulin Detemir (Levemir Vial) 20 units SQ BID@0700,2200 [facility] Last Admin: 09/28/18 06:26 Dose: 20 units Prednisone (Deltasone -) 40 mg PO DAILY [facility] Last Admin: 09/28/18 10:33 Dose: 40 mg Ranitidine HCl (Zantac -) 150 mg PO BID [facility] Last Admin: 09/28/18 10:33 Dose: 150 mg - Objective Vital Signs: Vital Signs Temperature 97.8 F 09/28/18 10:38 Pulse Rate 93 H 09/28/18 10:38 Respiratory Rate 22 H 09/28/18 10:38 Blood Pressure 143/100 09/28/18 10:38 O2 Sat by Pulse Oximetry (%) 97 09/28/18 10:38 Labs: CBC, BMP 09/28/18 06:00 09/28/18 06:00 INR, PTT INR 1.29 (0.82-1.09) H 09/22/18 11:48
--- NOTE | 2018-09-28 14:27 | PN ---
Progress Note (short form) - Note Progress Note: PULMONARY APPEARS STABLE OOB TO CHAIR VSS/AFEBRILE Constitutional: Yes: Calm, Obese HENT: Yes: WNL Neck: Yes: WNL Cardiovascular: Yes: Regular Rate and Rhythm, S1, S2 Respiratory: Yes: Wheezes (LESS WHEEZES BILATERALLY) Gastrointestinal: Yes: Normal Bowel Sounds, Soft Extremities: Yes: WNL Edema: Yes Labs/meds/notes/images reviewed IMP ACUTE HYPOXEMIC RESPIRATORY FAILURE IMPROVED ASTHMA EXACERBATION OBESITY-HYPOVENTILATION SYNDROME MORBID OBESITY DM HTN H/O MYCOPLASMA PNEUMONIA PLAN IV STEROIDS TO ORAL INCENTIVE SPIROMETRY INHALED BRONCHODILATORS O2 TO MAINTAIN SAT 90% OR GREATER BIPAP AT NIGHT AND PRN ABX GLYCEMIC CONTROL Guerita TOLENTINO MD
[2018-09-29] MEDS: INSULIN SLIDING SCALE (NOVOLOG) 1 VIAL SQ SCH ×2 (07:01→11:58)
[2018-09-29] MEDS: HEPARIN NA (PORCINE) 5,000 UNITS/ML 1ML VIAL SQ SCH (07:01)
[2018-09-29] MEDS: INSULIN (LEVEMIR) 100 UNITS/ML UNITS SQ SCH (07:01)
[2018-09-29] MEDS: ALBUTEROL SO4 2.5/IPRATROPIUM 0.5 INH SOL 3 ML VIAL.NEB. NEB SCH ×2 (07:43→11:01)
[2018-09-29 08:37] LABS: BASO % 0.8 % (0-2.0); EOS % 2.3 % (0-4.5); HEMATOCRIT 46.6 % (35.4-49); HEMOGLOBIN 15.1 GM/dL (11.7-16.9); LYMPH % 23.9 % (8-40); MCH 26.5 pg (25.7-33.7); MCHC 32.3 g/dl (32.0-35.9); MEAN CELL VOLUME 82.2 fl (80-96); MEAN PLT VOLUME 7.6 fl (7.5-11.1); MONO % 5.9 % (3.8-10.2); NEUT % 67.1 % (42.8-82.8); PLATELET COUNT 507 K/MM3 (134-434); RBC 5.67 M/mm3 (4.00-5.60); RDW 14.2 % (11.9-15.9); WHITE BLOOD COUNT 19.7 K/mm3 (4.0-10.0)
[2018-09-29 08:52] LABS: ALBUMIN 3.3 g/dl (3.4-5.0); CALCIUM 9.1 mg/dL (8.5-10.1); CREATININE 0.5 mg/dL (0.55-1.3); POTASSIUM 3.8 mmol/L (3.5-5.1); TOT PROT 8.3 g/dl (6.4-8.2)
[2018-09-29] MEDS ORDERED: DEXTROSE 5%-WATER - 50 ML IVPB ONE (09:06)
[2018-09-29] MEDS ORDERED: cefTRIAXone SODIUM 1 GM VIAL ONE (09:06)
[2018-09-29] MEDS: CEFTRIAXONE 1 GM in DEXTROSE 5%-WATER - 50 ML IVPB SCH (09:34)
[2018-09-29] MEDS: amLODIPine BESYLATE 10 MG TABLET (FP) PO SCH (09:34)
[2018-09-29] MEDS: AZITHROMYCIN IVPB 500 MG/250 ML BAG IVPB SCH (09:34)
[2018-09-29] MEDS: predniSONE 20 MG TABLET (UD) PO SCH (09:34)
[2018-09-29] MEDS: RANITIDINE HCL 150 MG TABLET (FP) PO SCH (09:34)
--- NOTE | 2018-09-29 12:35 | PN ---
Progress Note, Physician - Current Medication List Current Medications: Active Medications Albuterol Sulfate (Ventolin 0.083% Nebulizer Soln -) 1 amp NEB Q4H PRN PRN Reason: SHORT OF BREATH/WHEEZING Albuterol/Ipratropium (Duoneb -) 1 amp NEB RQID [facility] Last Admin: 09/29/18 11:01 Dose: 1 amp Amlodipine Besylate (Norvasc -) 10 mg PO DAILY [facility] Last Admin: 09/29/18 09:34 Dose: 10 mg Heparin Sodium (Porcine) (Heparin -) 5,000 unit SQ TID [facility] Last Admin: 09/29/18 07:01 Dose: 5,000 unit Azithromycin (Zithromax 500mg Ivpb (Pre-Docked)) 500 mg in 250 mls @ 250 mls/ hr IVPB DAILY [facility] Last Admin: 09/29/18 09:34 Dose: 250 mls/hr Ceftriaxone Sodium 1 gm/ (Dextrose) 50 mls @ 100 mls/hr IVPB DAILY [facility]; Protocol Last Admin: 09/29/18 09:34 Dose: 100 mls/hr Insulin Aspart (Novolog Vial Sliding Scale -) 1 vial SQ ACHS [facility]; Protocol Last Admin: 09/29/18 11:58 Dose: 8 units Insulin Detemir (Levemir Vial) 20 units SQ BID@0700,2200 [facility] Last Admin: 09/29/18 07:01 Dose: 20 units Prednisone (Deltasone -) 40 mg PO DAILY [facility] Last Admin: 09/29/18 09:34 Dose: 40 mg Ranitidine HCl (Zantac -) 150 mg PO BID [facility] Last Admin: 09/29/18 09:34 Dose: 150 mg - Objective Vital Signs: Vital Signs Temperature 97.6 F 09/29/18 08:51 Pulse Rate 101 H 09/29/18 08:51 Respiratory Rate 20 09/29/18 08:51 Blood Pressure 124/69 09/29/18 08:51 O2 Sat by Pulse Oximetry (%) 96 09/29/18 09:48 Labs: CBC, BMP 09/29/18 07:52 09/29/18 08:00 INR, PTT INR 1.29 (0.82-1.09) H 09/22/18 11:48
--- NOTE | 2018-09-29 12:59 | PN ---
Progress Note (short form) - Note Progress Note: PULMONARY States breathing is at baseline. No cough or wheezing. Vital Signs Period Temp Pulse Resp BP Sys/Basilio Pulse Ox Last 24 Hr 97.1 F-97.8 F 73-104 18-20 103-131/57-71 93-97 Gen: NAD in chair Heart: RRR Lung: distant breath sounds Abd: soft, nontender Ext: no edema CBC, BMP 09/29/18 07:52 09/29/18 08:00 Active Medications Albuterol Sulfate (Ventolin 0.083% Nebulizer Soln -) 1 amp NEB Q4H PRN PRN Reason: SHORT OF BREATH/WHEEZING Albuterol/Ipratropium (Duoneb -) 1 amp NEB RQID [facility] Last Admin: 09/29/18 11:01 Dose: 1 amp Amlodipine Besylate (Norvasc -) 10 mg PO DAILY [facility] Last Admin: 09/29/18 09:34 Dose: 10 mg Heparin Sodium (Porcine) (Heparin -) 5,000 unit SQ TID [facility] Last Admin: 09/29/18 07:01 Dose: 5,000 unit Insulin Aspart (Novolog Vial Sliding Scale -) 1 vial SQ ACHS [facility]; Protocol Last Admin: 09/29/18 11:58 Dose: 8 units Insulin Detemir (Levemir Vial) 20 units SQ BID@0700,2200 [facility] Last Admin: 09/29/18 07:01 Dose: 20 units Prednisone (Deltasone -) 40 mg PO DAILY [facility] Last Admin: 09/29/18 09:34 Dose: 40 mg Ranitidine HCl (Zantac -) 150 mg PO BID [facility] Last Admin: 09/29/18 09:34 Dose: 150 mg A/P Acute Asthma Exacerbation Morbid Obesity Obesity Hypoventilation Syndrome HTN DM - prednisone taper - inhaled bronchodilators - outpt PFTs - DVT prophylaxis - can d/c home from pulmonary standpoint
--- NOTE | 2018-09-29 13:46 | DS ---
Physical Examination Vital Signs: Vital Signs Temperature 97.6 F 09/29/18 08:51 Pulse Rate 111 H 09/29/18 13:16 Respiratory Rate 20 09/29/18 08:51 Blood Pressure 124/69 09/29/18 08:51 O2 Sat by Pulse Oximetry (%) 94 L 09/29/18 13:16 Constitutional: Yes: Well Nourished, No Distress, Calm Eyes: Yes: WNL HENT: Yes: WNL Neck: Yes: WNL Cardiovascular: Yes: WNL, Regular Rate and Rhythm Respiratory: Yes: WNL, Regular Gastrointestinal: Yes: WNL, Normal Bowel Sounds ...Rectal Exam: Yes: Deferred Renal/: Yes: WNL Breast(s): Yes: WNL Musculoskeletal: Yes: WNL Extremities: Yes: WNL Edema: No Integumentary: Yes: WNL Neurological: Yes: Alert, Oriented ...Motor Strength: WNL Psychiatric: Yes: WNL, Alert, Oriented Labs: CBC, BMP 09/29/18 07:52 09/29/18 08:00 Discharge Summary Reason For Visit: ACUTE ON CHRONIC RESPIRATORY FAILURE Current Active Problems Acute and chronic respiratory failure (Acute) Acute hypoxemic respiratory failure (Acute) Acute on chronic respiratory failure with hypoxemia (Acute) Asthma exacerbation (Acute) Diabetes mellitus (Acute) Leukocytosis (Acute) Liver enzyme elevation (Acute) MARTHA (obstructive sleep apnea) (Acute) Prophylactic measure (Acute) Wheezing (Acute) Hospital Course: Patient is a 28 year old male with a past medical history of HTN, Type II NIDDM , morbid obesity, hypoventilation syndrome, MARTHA on home CPAP. Hospitalized in July 2018 for mycoplasma pneumonia at [facility] from (08/02-08/08/18 ) for asthma exacerbation/mycoplasma pneumonia. Admitted for hypoxic respiratory failure at [facility], tranfered to [facility] for closer monitoring. HOSPITAL COURSE BY PROBLEM LIST: Acute and chronic respiratory failure. resolved. improved on supplemental oxygen therapy, steriods and duonebs. Pre and post shows no need for home oxygen. Follow up with pulmonary as an outpatient. Patient to continue steroid taper. Diabetes mellitus. Type II NIDDM/diabetes. Elevated a1c 10.3. previously 14.5. on SS. patient on short acting and long acting insulin since last visit at [place]. He selft injects with his family's assistance. Discussed importance of having an endocrinology follow up. He is willing to make an appointment. Acute on chronic respiratory failure with hypoxemia. stable. has cpap at home. referred to pulmonary as an outpatient. Asthma exacerbation. Continue bronchodilators, albuterol prn. will benefit from pulmonary follow up outpatient Negative D dimer. MARTHA. on noctural bipap. Wheezing. resolved. Leukocytosis. No signs of sepsis and evaluated by ID specialist. No further antibotics. Patient to have CBC repeated as an outpatient. Follow up with PCP. Recommend hematology consult if leukocytosis persists. Septic workup negative. DISCHARGE PLAN: Discharge home with close follow up with endocrinology, pulmonary and patient' s PCP. Condition: Stable - Instructions Diet, Activity, Other Instructions: Mr. So. You were admitted for acute asthma exacerbation. Here are our recommendations: Asthma It is important that you follow up with a valve and regulator repairer within 1-2 weeks after discharge. This will help keep your asthma stable. We treated you with IV Steriods to decrease the inflammation, we will be sending you home with PREDNISONE. here is how you will take the Prednisone. Take Prednisone 40mg DAILY on 09/30/18, 10/01/18 and 10/02/18 - EACH PILL IS 10MG SO YOU WILL NEED 4 PILLS TO MAKE THE 40MG Take Prednisone 30mg DAILY on 10/03/18, 10/04/18 and 10/05/18 - EACH PILL IS 10MG SO YOU WILL NEED 3 PILLS TO MAKE THE 30MG Take Prednisone 20mg DAILY on 10/06/18, 10/07/18 and 10/08/18 - EACH PILL IS 10MG SO YOU WILL NEED 2 EACH TO MAKE THE 20MG Take Prednisone 10mg DAILY on 10/09/18 and 10/10/18 - EACH PILL IS 10MG SO YOU WILL NEED 1 EACH TO MAKE THE 10MG Insulin pen: Continue to take the 16 units as you have been doing before meals. Please follow up with Dr. Atkins as an outpatient. He is the clocksmith and can help you with managing diabetes. Continue your home Basaglar at 42 units at bedtime. It is important that you see a clocksmith for better control of your blood sugars. PLEASE FOLLOW UP WITH YOUR PRIMARY CARE DOCTOR WITHIN 3-5 DAYS BY CALLING AND MAKING AN APPOINTMENT. PLEASE BRING YOUR DISCHARGE PAPER WORK WITH YOU. YOU WILL NEED TO HAVE YOUR LAB WORK REPEATED. THANK YOU Referrals: Fei Meng MD [Staff Physician] - Valeria Stephen MD [Staff Physician] - (please call to make an appointment.) Disposition: HOME - Home Medications Comprehensive Discharge Medication List: Ambulatory Orders Albuterol Sulfate Inhaler - [Ventolin HFA Inhaler -] 2 inh PO Q6H PRN 09/22/18 Amlodipine Besylate [Norvasc -] 10 mg PO DAILY 09/22/18 Alcohol Antiseptic Pads [Alcohol Prep Pads] 1 each TP ACHS #90 med..pad Insulin (Novolog) [Novolog] 16 units SQ AC #7 vial 09/29/18 Insulin Glargine,Hum.rec.anlog [Basaglar Kwikpen U-100] 42 unit SQ HS #7 insuln.pen 09/29/18 Lancets [Lancets Thin] 1 each MC ACHS #100 each 09/29/18 Miscellaneous Medical Supply [Glucometer Device] 1 each SQ ACHS #1 kit 09/29/18 Miscellaneous Medical Supply [Glucometer Test Strips #100] 1 each SQ ASDIR #1 box 09/29/18 Pen Needle, Diabetic [1St Tier Unifine Pentips Plus] 1 each MC ACHS #100 dis.needle 09/29/18 Prednisone 10 mg PO DAILY #30 tablet 09/29/18 Ranitidine [Zantac -] 150 mg PO BID #0 tablet 09/29/18 This patient is new to me today: Yes Date on this admission: 09/29/18 Emergency Visit: No Critical Care patient: No - Discharge Referral Referred to [facility] No
[2018-09-29 15:03] VITALS: BP 142/87; PULSE 101; TEMP 98.3
== END 2018-09-29 15:25 | disposition home or self-care (01) | DRG 189 ==
LOC: FER 10:17 → FM/S 13:48 → J4S 21:33 → OBSVTOIN 09-23 00:14
PROVIDERS: ADMIT Internal Medicine; ATTEND Nurse Practitioner Family
DX: J96.21 Acute and chronic respiratory failure with hypoxia (principal); E66.2 Morbid (severe) obesity with alveolar hypoventilation; J45.41 Moderate persistent asthma with (acute) exacerbation; Z68.43 Body mass index [BMI] 50.0-59.9, adult; E87.1 Hypo-osmolality and hyponatremia; E11.9 Type 2 diabetes mellitus without complications; R06.89 Other abnormalities of breathing; R62.50 Unspecified lack of expected normal physiological development in childhood; I10 Essential (primary) hypertension; E66.01 Morbid (severe) obesity due to excess calories; G47.33 Obstructive sleep apnea (adult) (pediatric); D72.829 Elevated white blood cell count, unspecified
CPT/HCPCS: 36415; 36600; 71045-TC-FY; 80053; 81003; 81015; 82803; 82962; 83036; 83605; 83735; 83880; 84484; 85025; 85379; 85610; 85730; 87040; 87086; 87804; 87899; 93005; 94010; 94640; 94660; 94761; 99285-25; G0378; J1644

== ENCOUNTER 2022-05-19 11:46 | Inpatient (IN) | payer OTHER ==
[2022-05-19] MEDS ORDERED: SODIUM CHLORIDE 0.9% 500 ML INFUS.BAG IV ONE (12:01)
[2022-05-19] MEDS ORDERED: ACETAMINOPHEN 1000 MG/100 ML BAG IVPB ONE (12:02)
[2022-05-19] MEDS ORDERED: FAMOTIDINE 20 MG/50 ML IVPB 20 MG/50 ML MG IVPB ONE ×2 (12:02→12:40)
[2022-05-19] MEDS ORDERED: ACETAMINOPHEN INJECTION 100 ML IVPB ONE (12:40)
[2022-05-19 13:28] LABS: HEMATOCRIT 40.2 % (35.4-49); HEMOGLOBIN 13.4 G/dL (11.7-16.9); MCH 27.5 pg (25.7-33.7); MCHC 33.2 g/dl (32.0-35.9); MEAN CELL VOLUME 82.8 fl (80-96); MEAN PLT VOLUME 7.8 fl (7.5-11.1); RBC 4.85 10^6/uL (4.00-5.60); RDW 13.7 % (11.9-15.9); WHITE BLOOD COUNT 21.4 10^3/uL (4.0-10.8)
[2022-05-19 13:34] LABS: ALBUMIN 3.4 g/dl (3.4-5.0); BILIRUBIN,TOTAL 0.6 mg/dl (0.2-1); CALCIUM 8.3 mg/dl (8.5-10); CREATININE 0.8 mg/dl (0.55-1.3); MAGNESIUM 1.4 mg/dL (1.8-2.4); PHOSPHOROUS 4.8 mg/dl (2.5-4.9); TOT PROT 8.1 g/dl (6.4-8.2)
[2022-05-19 13:45] LABS: PLATELET ESTIMATE ADEQUATE
[2022-05-19] MEDS ORDERED: BISMUTH SUBSALICYLATE 524 MG/30 ML PO PRN (15:14)
[2022-05-19] MEDS: SODIUM CHLORIDE 1,000 ML IV SCH (17:43)
[2022-05-19] MEDS ORDERED: MAGNESIUM SULF 50% (8.12 MEQ/2 ML-1 GM VIAL) IVPB ONE (17:50)
[2022-05-19] MEDS ORDERED: VANCOMYCIN HCL 125 MG CAPSULE PO SCH (18:00)
[2022-05-19 18:11] VITALS: BMI 54.6
[2022-05-19] MEDS ORDERED: ACETAMINOPHEN 325 MG TABLET (FP) PO PRN (20:32)
[2022-05-19 21:42] LABS: EPITHELIAL CELLS FEW /hpf
[2022-05-19] MEDS: ATORVASTATIN CA 80 MG TABLET (FP) PO SCH (21:43)
[2022-05-19] MEDS: INSULIN SLIDING SCALE (NOVOLOG) 1 VIAL SQ SCH (21:47)
[2022-05-19] MEDS ORDERED: ACETAMINOPHEN 1000 MG/100 ML BAG IVPB PRN (21:53)
[2022-05-19] MEDS ORDERED: MELATONIN 5 MG TABLETS PO PRN (21:58)
[2022-05-19] MEDS: VANCOMYCIN 250 MG/5 ML ORAL SOLUTION PO SCH (22:02)
[2022-05-20] MEDS ORDERED: REFRIGERATED ANITBIOTICS ONE ×4 (01:27→18:12)
[2022-05-20] MEDS: VANCOMYCIN 250 MG/5 ML ORAL SOLUTION PO SCH ×4 (01:48→18:38)
[2022-05-20] MEDS: INSULIN SLIDING SCALE (NOVOLOG) 1 VIAL SQ SCH ×4 (07:01→21:52)
[2022-05-20 09:00] LABS: INR 1.22 (0.83-1.09); PROTHROMBIN TIME (PATIENT) 14.1 SEC (9.7-13.0)
[2022-05-20 09:03] LABS: ACTIVATED PTT 38.5 SECONDS (25.2-36.5)
[2022-05-20 09:11] LABS: CALCIUM 8.7 mg/dl (8.5-10); CREATININE 0.5 mg/dl (0.55-1.3); MAGNESIUM 1.8 mg/dL (1.8-2.4)
[2022-05-20 09:14] LABS: HEMATOCRIT 37.4 % (35.4-49); HEMOGLOBIN 12.3 G/dL (11.7-16.9); MCH 27.1 pg (25.7-33.7); MCHC 32.9 g/dl (32.0-35.9); MEAN CELL VOLUME 82.6 fl (80-96); MEAN PLT VOLUME 7.6 fl (7.5-11.1); PLATELET COUNT 367.5 10^3/uL (134-434); RBC 4.53 10^6/uL (4.00-5.60); RDW 14.3 % (11.9-15.9); WHITE BLOOD COUNT 16.2 10^3/uL (4.0-10.8)
[2022-05-20] MEDS: ENOXAPARIN NA (PORCINE) 40 MG/0.4 ML DISP.SYRIN SQ SCH ×2 (10:56→21:52)
[2022-05-20] MEDS: SODIUM CHLORIDE 1,000 ML IV SCH (14:34)
[2022-05-20] MEDS: ALBUTEROL SO4 HFA INHALER IH SCH ×2 (18:37→20:34)
[2022-05-20] MEDS: ATORVASTATIN CA 80 MG TABLET (FP) PO SCH (21:50)
[2022-05-20] MEDS ORDERED: ACETAMINOPHEN 325 MG TABLET (FP) PO PRN (22:00)
[2022-05-21] MEDS ORDERED: REFRIGERATED ANITBIOTICS ONE ×2 (00:35→06:38)
[2022-05-21] MEDS: VANCOMYCIN 250 MG/5 ML ORAL SOLUTION PO SCH ×3 (00:38→16:03)
[2022-05-21] MEDS: INSULIN SLIDING SCALE (NOVOLOG) 1 VIAL SQ SCH ×2 (06:44→11:23)
[2022-05-21 08:59] LABS: HEMATOCRIT 38.4 % (35.4-49); HEMOGLOBIN 12.5 G/dL (11.7-16.9); MCH 26.9 pg (25.7-33.7); MCHC 32.6 g/dl (32.0-35.9); MEAN CELL VOLUME 82.5 fl (80-96); MEAN PLT VOLUME 7.7 fl (7.5-11.1); PLATELET COUNT 411.1 10^3/uL (134-434); RBC 4.65 10^6/uL (4.00-5.60); RDW 14.3 % (11.9-15.9); WHITE BLOOD COUNT 16.1 10^3/uL (4.0-10.8)
[2022-05-21] MEDS: ENOXAPARIN NA (PORCINE) 40 MG/0.4 ML DISP.SYRIN SQ SCH (10:38)
[2022-05-21] MEDS: ALBUTEROL SO4 HFA INHALER IH SCH ×2 (10:38→16:03)
[2022-05-21 14:40] VITALS: BP 141/70; PULSE 94; RESP 18; TEMP 98.2
[2022-05-21] MEDS: SODIUM CHLORIDE 1,000 ML IV SCH (16:03)
== END 2022-05-21 16:42 | disposition home or self-care (01) | DRG 372 ==
LOC: FER 11:46 → FM/S 15:08
PROVIDERS: ADMIT Internal Medicine; ATTEND Internal Medicine
DX: A04.72 Enterocolitis due to Clostridium difficile, not specified as recurrent (principal); Z68.43 Body mass index [BMI] 50.0-59.9, adult; E86.0 Dehydration; J45.909 Unspecified asthma, uncomplicated; E11.9 Type 2 diabetes mellitus without complications; I10 Essential (primary) hypertension; R19.7 Diarrhea, unspecified; R55 Syncope and collapse; D72.829 Elevated white blood cell count, unspecified; G47.33 Obstructive sleep apnea (adult) (pediatric); E78.5 Hyperlipidemia, unspecified; E66.01 Morbid (severe) obesity due to excess calories
CPT/HCPCS: 0241U-QW; 36415; 71045-TC-FY; 76705-TC; 80048; 80053; 81003; 81015; 82962; 83036; 83690; 83735; 84100; 84484; 85027; 85610; 85730; 86682; 86850; 86900; 86901; 87040; 87045; 87046; 87086; 87205; 87328; 87329; 93005; 99285-25

== ENCOUNTER 2022-07-17 10:50 | Emergency (ER) | payer OTHER ==
[2022-07-17] MEDS ORDERED: FAMOTIDINE 20 MG/50 ML IVPB 20 MG in PREMIX 50 IVPB ONE (10:57)
[2022-07-17] MEDS ORDERED: SODIUM CHLORIDE 1,000 ML IV ONE (10:58)
[2022-07-17 11:05] VITALS: BP 138/86; PULSE 114; RESP 18; TEMP 98.5; BMI 112.2
[2022-07-17] MEDS ORDERED: FAMOTIDINE 20 MG/50 ML IVPB 20 MG/50 ML MG IVPB ONE (11:06)
[2022-07-17 12:04] LABS: ALBUMIN 3.5 g/dl (3.4-5.0); BILIRUBIN,TOTAL 0.7 mg/dl (0.2-1); CALCIUM 8.8 mg/dl (8.5-10); CREATININE 0.5 mg/dl (0.55-1.3); TOT PROT 8.1 g/dl (6.4-8.2)
[2022-07-17 12:08] LABS: HEMATOCRIT 39.5 % (35.4-49); HEMOGLOBIN 13.4 G/dL (11.7-16.9); MCHC 33.8 g/dl (32.0-35.9); MEAN CELL VOLUME 82.9 fl (80-96); MEAN PLT VOLUME 7.5 fl (7.5-11.1); PLATELET COUNT 409.6 10^3/uL (134-434); RBC 4.77 10^6/uL (4.00-5.60); RDW 13.7 % (11.9-15.9); WHITE BLOOD COUNT 15.4 10^3/uL (4.0-10.8)
[2022-07-17 13:20] LABS: PLATELET ESTIMATE ADEQUATE
[2022-07-17 13:27] LABS: EPITHELIAL CELLS RARE /hpf
== END 2022-07-17 15:02 | disposition home or self-care (01) ==
LOC: FER 10:50
PROC: 3E033GC Introduction of Other Therapeutic Substance into Peripheral Vein, Percutaneous Approach (ICD-10-PCS; principal; 2022-07-17)
PROC: 3E0337Z Introduction of Electrolytic and Water Balance Substance into Peripheral Vein, Percutaneous Approach (ICD-10-PCS; 2022-07-17)
DX: R14.2 Eructation (principal); D72.829 Elevated white blood cell count, unspecified
CPT/HCPCS: 36415; 80053; 81003; 81015; 84484; 85027; 93005; 99284-25

== ENCOUNTER 2022-08-29 08:29 | Emergency (ER) | payer OTHER ==
[2022-08-29] MEDS ORDERED: MAG HYDROX/AL HYDROX/SIMETH 30 ML UNIT-DOSE CUP PO ONE (09:25)
[2022-08-29] MEDS ORDERED: MAG HYDROX/AL HYDROX/SIMETH 30 ML UNIT-DOSE CUP ONE (09:41)
[2022-08-29 09:49] VITALS: BP 123/79; PULSE 93; RESP 18; TEMP 97.8; BMI 50.9
== END 2022-08-29 09:56 | disposition home or self-care (01) ==
LOC: FER 08:29
DX: R19.6 Halitosis (principal); K02.9 Dental caries, unspecified
CPT/HCPCS: 93005; 99283-25